=== PATIENT | male | born 1955 | race Caucasian/White ===

== ENCOUNTER 2020-10-13 11:14 | Inpatient (IN) ==
[2020-10-13] MEDS ORDERED: ACETAMINOPHEN 500 MG TAB ONE (12:00)
[2020-10-13 12:45] LABS: Appearance Urine Clear (Clear); Bacteria Urine Automated Negative (Negative); Bilirubin Urine Negative (Negative); Blood Urine Negative (Negative); Color Urine Yellow; Glucose Urine UA Negative (Negative); Ketones Urine Negative (Negative); Leukocyte Esterase Urine Trace (Negative); Nitrite Urine Negative (Negative); Protein Urine Trace (Negative); RBC Urine Automated 0-4 /hpf (0-4); Specific Gravity Urine 1.023 (1.000-1.030); Urobilinogen Urine Negative (Negative)
[2020-10-13] MEDS ORDERED: SODIUM CHLORIDE 0.9% 1000ML 1,000 ML IV STA (12:56)
[2020-10-13] MEDS ORDERED: ACETAMINOPHEN 1,000 MG/100 ML VIAL IV STA (12:56)
[2020-10-13] MEDS ORDERED: CEFEPIME 2,000 MG/20 ML VIAL IV STA (12:58)
[2020-10-13] MEDS ORDERED: SODIUM CHLORIDE 0.9% 1000ML 2,000 ML IV ONE (13:00)
[2020-10-13 13:16] LABS: Basophils # (auto) 0.01 K/uL (0-0.2); Basophils % (auto) 0.1 %; Hematocrit (blood only) 42.6 % (42-52); Immature Granulocytes # (auto) 0.01 K/uL (0.00-0.02); Immature Granulocytes % (auto) 0.1 %; Lymphocytes # (auto) 0.94 K/uL (1.2-3.4); Lymphocytes % (auto) 9.3 %; Mean Corpuscular Hemoglobin 29.9 pg (25-34); Mean Corpuscular Hgb Conc 32.9 g/dL (32-36); Mean Corpuscular Volume 90.8 fL (80-100); Mean Platelet Volume 11.2 fL (7.4-10.4); Monocytes # (auto) 0.58 K/uL (0.11-0.59); Monocytes % (auto) 5.8 %; Neutrophils # (auto) 8.53 K/uL (1.4-6.5); Neutrophils % (auto) 84.7 %; Platelet Count 185 K/uL (130-400); RDW Coefficient of Variation 12.8 % (11.5-14.5); Red Blood Count 4.69 M/uL (4.7-6.1); White Blood Count 10.07 K/uL (4.8-10.8)
[2020-10-13 13:34] LABS: Albumin Level 3.6 gm/dl (3.4-5.0); BUN Creatinine Ratio 10.9 (10-20); Creatinine Clr Calc Pharmacy 47.2 ml/min; Est GFR (African American) 53.2 ml/min; Est GFR (Non-African American) 45.9 ml/min; Potassium 3.7 mmol/L (3.5-5.1)
[2020-10-13 13:37] LABS: Albumin Globulin Ratio 1.1 (0.9-2); Bilirubin,Total 0.9 mg/dl (0.2-1); Globulin 3.4 gm/dl (2.5-4.0)
[2020-10-13] MEDS ORDERED: OPTIRAY 320 100ml IV ONE (14:19)
--- NOTE | 2020-10-13 14:29 | XRay Report ---
SINGLE VIEW CHEST CLINICAL HISTORY: Fever. FINDINGS: 2 AP, portable, upright chest radiographs are obtained. No prior studies are available for comparison at the time of dictation. Heart is top normal for projection. The mediastinal contour is w ithin normal limits. Atelectasis is noted at the lung bases. The lungs and pleural spaces are otherwi se clear. No pneumothorax is seen. The bony thorax is grossly intact. IMPRESSION: No acute cardiopulmonary abnormality. ACT 112: Negative or not required by law. Electronically signed by: Hector Crowe M.D. 10/13/2020 2:28 PM
--- NOTE | 2020-10-13 14:55 | CT Scan Report ---
CT SCAN OF THE ABDOMEN AND PELVIS WITH IV CONTRAST CLINICAL HISTORY: Bladder stone. Recent cystoscopy. Fever. COMPARISON STUDY: Renal ultrasound dated 02/12/2014. TECHNIQUE: Following the IV administration of 94 cc of Optiray 320, CT scan of the abdomen and pelvi s is performed from the lung bases to the proximal femora. Images are reviewed in the axial, sagittal , and coronal planes. IV contrast was administered without complication. A dose lowering technique wa s utilized adhering to the principles of ALARA. CT DOSE: 292.72 mGy.cm FINDINGS: Lung bases: The heart is normal in size and without pericardial effusion. The lung bases are clear no ting bibasilar scarring/atelectasis. Liver: The contrast-enhanced liver is normal in size, contour, and attenuation. There is no intrahepa tic biliary ductal dilatation. The hepatic veins and portal veins are patent. Gallbladder: Unremarkable. Spleen: Normal in size and attenuation. Pancreas: Unremarkable. Adrenal glands: Unremarkable. Kidneys: The contrast enhanced kidneys are normal in size and without hydronephrosis. 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 There is mild fullness of the left ureter and renal collec ting system with urothelial thickening of the left ureter. There is heterogeneously/striated enhancem ent in the upper pole of the left kidney with mild left-sided perinephric stranding. The right kidney enhances homogeneously. Abdominal vasculature: The abdominal aorta is normal in course and caliber noting scattered foci of a therosclerotic calcification. Bowel: There is moderate constipation. No bowel obstruction is identified. The appendix is well-visu alized and normal. Peritoneum: There is no intraperitoneal free air or abdominal ascites. There is a small fat-containin g umbilical hernia. Lymphadenopathy: None. Pelvic viscera: The prostate gland is enlarged and heterogeneous measuring 5.8 cm in transverse outer . There is median lobe hypertrophy. The bladder wall appears mildly thickened and trabeculated sugges ting chronic outlet obstruction. A 1.9 cm bladder calculus is noted. Skeletal structures: No lytic or blastic lesions are seen. IMPRESSION: 1. There is heterogeneous/striated enhancement in the upper pole of the left kidney with mild left-si ded perinephric stranding. Given the history of recent cystoscopy and fever this likely represents as cending urinary tract infection/pyelonephritis. Correlate with clinical findings and urinalysis. 2. The right kidney enhances homogeneously. 3. The prostate gland is significantly enlarged and heterogeneous and there is evidence of chronic bl adder outlet obstruction. Superimposed prostatitis would be impossible to exclude. Correlate clinical ly. 4. There is a large bladder calculus. 5. Additional findings as above. ACT 112: Negative or not required by law. Electronically signed by: Hector Crowe M.D. 10/13/2020 2:54 PM
[2020-10-13] MEDS ORDERED: LIDOCAINE 2% JELLY 5 ML TUBE EXT ONE (15:35)
--- NOTE | 2020-10-13 17:14 | History & Physical Report ---
Date of Service October 13, 2020 Assessment & Plan (1) Acute urinary retention: Plan: Patient is being admitted for above problem. Leroy is placed. Will likely need TURP. will consult urology. will be NPO after midnight. continue to tamsulosin. (2) Benign localized prostatic hyperplasia with lower urinary tract symptoms (LUTS): Plan: as above. not respondning to tamsulosin. (3) Recurrent genital herpes simplex: Plan: CONTINUE ACYCLOVIR. No breakout for years. (4) Chronic kidney disease, stage 3: Plan: Creatinine is elevated at 1.45 unsure of baseline. will monitor. History of Present Illness Chief Complaint: urinary retention Primary Care Provider: Nitesh Munoz 65 yo male who history of BPH, comes into the hospital with a 3 day history of urinary retention. Patient reports over course of Tuesday into Tuesday, patient has been having severe difficulty urinating. He reports he would need to try for about 30 minutes just to get a short stream and sometimes even an unsteady (trickle) stream. He tried to hold off from going to the hospital. But he felt uncomfortable and had a dull pain in his lower abdomen. Once he came to the ER, a leroy catheter was placed and over 1.5 liters of urine was removed. Patient reports feeling significantly better after this procedure. Earlier in the week, patient was seen by Urology and had an in office cystoscopy. It was deemed patient will require a TURP and this was planned for the future. Allergies Allergy/AdvReac Type Severity Reaction Status Date / Time seasonal Allergy Unknown Uncoded 10/06/20 14:56 quillian Allergy Uncoded 10/06/20 14:56 Home Medications Medication Instructions Recorded Confirmed Type acyclovir 400 mg tablet 400 mg PO BID 09/17/20 10/13/20 History tamsulosin 0.4 mg capsule 0.8 mg PO DAILY 09/17/20 10/13/20 History diazepam 5 mg tablet (Valium) 5 mg PO ONCE PRN #1 tab 09/24/20 10/13/20 Rx Past Med/Surg History Medical History H/O poliomyelitis Hx of cataract Surgical History Hx of tonsillectomy Family History Grandfather (Maternal) Prostate cancer Father Prostate cancer Social History Smoking Status: Never smoker Second Hand Exposure: No; Do You Dip or Chew Tobacco: No; Hx Alcohol Use: Yes Alcohol type: beer Hx Substance Use: No Preferred Language: Beninese Communication Ability: Effective Beliefs That Will Affect Care: None marital status: Current Living Situation: Spouse current occupational status: employed 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 Other Information That Helps Us Care for You: No Feels Safe at Home: Yes Assistive Devices: None Review of Systems Constitutional: no fever, no sweats and no body aches Eyes: no blind spots, no diplopia and no discharge Ear, Nose, Mouth, Throat: no ear pain, no ear trauma and no tinnitus Respiratory: no cough and no change in sputum Cardiovascular: no chest pain and no chest pain with activity Gastrointestinal: no abdominal pain and no bloating Genitourinary: no dysuria, no urinary frequency or no urinary hesitancy Musculoskeletal: no back pain Integumentary: no acne Neurologic: no gait abnormality and no falls Psychiatric: no behavioral changes and no hopelessness Endocrine: no fatigue and no polydipsia Hematologic / Lymphatic: no easy bleeding and no coagulopathy Physical Exam Constitutional: WD/WN, vitals as above Eyes: PERRL, conjunctivae normal, anicteric sclerae ENMT: external ear and nose normal, oropharynx normal Neck: trachea midline, no thyromegaly Cardiovascular: RRR, no murmur, no edema Gastrointestinal (Abdomen): normal bowel sounds, soft, nontender, no hepatosplenomegaly Musculoskeletal: no cyanosis or clubbing, extremities motor strength 5/5 Skin: no rashes, warm and dry Neurologic: PERRL, EOMI, accommodation nl, no face palsy, no dysarthria Psychiatric: A+Ox3, euthymic affect Lymphatic: no cervical or axillary lymphadenopathy Results & Data Results & Data ([facility]) Vital Signs (Past 12 Hours) Vital Signs Temp Pulse Pulse Resp BP BP Pulse Ox 10/13/20 16:05 37.2 C 66 18 155/66 H 98 10/13/20 16:04 37.2 C 10/13/20 14:33 64 18 120/62 96 10/13/20 12:56 77 18 143/76 H 97 10/13/20 11:54 39.1 C H 94 H 18 115/74 96 PG Care Time/CCT Total # of Minutes Spent Total Time Spent with Patient: Total time spent is greater than 50% in coordination of care (as documented) at patient's floor/unit and/or counseling patient: Coding Level of Care Code 01602 Initial Inpt Care Lvl 3 Diagnoses Benign localized prostatic hyperplasia with lower urinary tract symptoms (LUTS) N40.1 Recurrent genital herpes simplex A60.00 Chronic kidney disease, stage 3 N18.30 Acute urinary retention R33.8 Time Spent (min) 55
--- NOTE | 2020-10-13 17:40 | Emergency Department Note ---
History of Present Illness General Chief complaint: Referred by Doctor Stated complaint: REFERRD BY DOCTOR Source: patient, RN notes reviewed and old records reviewed Mode of arrival: ambulatory Limitations: no limitations History of Present Illness Provider complaint: Difficulty urinating This patient is a 65-year-old male who presents to the emergency department with complaints of difficulty urinating. Patient states he had a cystoscopy performed 1 week ago. He initially had no difficulty urinating several days later developed a week and a forced stream. Tonight he complains of discomfort and feels the urge to urinate. He states he has a known bladder stone and a large prostate. Patient denies any fevers, blood in the urine, back pain or vomiting. Home Medications Medication Instructions Recorded Confirmed Type acyclovir 400 mg tablet 400 mg PO BID 09/17/20 10/14/20 History tamsulosin 0.4 mg capsule 0.8 mg PO QAM 09/17/20 10/14/20 History diazepam 5 mg tablet (Valium) 5 mg PO ONCE PRN #1 tab 09/24/20 10/14/20 Rx acetaminophen 325 mg tablet 650 mg PO Q4H PRN #20 tab 10/18/20 Rx amoxicillin 875 mg-potassium 1 tab PO BID #10 tab 10/18/20 Rx clavulanate 125 mg tablet (Augmentin) Allergies Allergy/AdvReac Type Severity Reaction Status Date / Time quillian Allergy Mild was told Uncoded 10/14/20 15:49 family history, and not to receive it seasonal Allergy Unknown Uncoded 10/14/20 15:49 Past Med/Surg History Medical History Benign localized prostatic hyperplasia with lower urinary tract symptoms (LUTS) leroy cath in place and in hospital 10/14/2020 Chronic kidney disease, stage 3 GERD with esophagitis diet controlled H/O poliomyelitis Recurrent genital herpes simplex Surgical History Hx of cataract surgery right and left Hx of tonsillectomy Family History Grandfather (Maternal) Prostate cancer Father Prostate cancer Social History Smoking Status: Never smoker Second Hand Exposure: No; Hx Alcohol Use: Yes Alcohol type: beer Hx Substance Use: No Preferred Language: Yakut Communication Ability: Effective Visual Impairment: No Limitations Functional Analyst Required: No Beliefs That Will Affect Care: None marital status: Current Living Situation: Spouse current occupational status: employed 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 and A total of 10 systems reviewed and were otherwise negative Physical Exam Vital Signs Vital Signs - 24 hr 10/13/20 11:54 10/13/20 12:56 10/13/20 14:33 Temperature 39.1 C H Temperature Source Oral Pulse Rate 94 H Pulse Rate [Left Apical] 77 64 Pulse Rhythm Regular Pulse Rhythm [Left Apical] Regular Pulse Strength Normal Respiratory Rate 18 18 18 Respiratory Effort / Characteristics Non-Labored Spontaneous Non-Labored Non-Labored Respiratory Depth Normal Normal Normal Respiratory Pattern Regular Blood Pressure 115/74 Blood Pressure [Left Arm] 143/76 H 120/62 Blood Pressure Mean 87 Blood Pressure Mean [Left Arm] 98 81 Blood Pressure Position Sitting Pulse Oximetry 96 97 96 Oxygen Delivery Method Room Air Room Air Room Air Sepsis Recent Fever Within 48 Hours Yes Sepsis New/Unexplained Change in Mental Status No Sepsis Action Taken by Nursing No Action Required 10/13/20 16:04 10/13/20 16:05 10/13/20 17:27 Temperature 37.2 C 37.2 C Temperature Source Oral Oral Pulse Rate Pulse Rate [Left Apical] 66 68 Pulse Rhythm Pulse Rhythm [Left Apical] Regular Pulse Strength Respiratory Rate 18 19 Respiratory Effort / Characteristics Respiratory Depth Normal Respiratory Pattern Blood Pressure Blood Pressure [Left Arm] 155/66 H Blood Pressure Mean Blood Pressure Mean [Left Arm] 95 Blood Pressure Position Pulse Oximetry 98 98 Oxygen Delivery Method Room Air Room Air Sepsis Recent Fever Within 48 Hours Sepsis New/Unexplained Change in Mental Status Sepsis Action Taken by Nursing Vital signs reviewed. General: Well-appearing 65-year-old male, in no significant distress. HEENT: No scleral icterus, PERRLA, neck supple. Atraumatic. Cardiovascular: Regular rate and rhythm, no extra sounds. Pulmonary: Clear to auscultation bilaterally, normal work of breathing. Abdomen: Soft, mild pubic discomfort to palpation, nondistended, positive bowel sounds. Musculoskeletal: Atraumatic, no peripheral edema. No CVA tenderness Neurologic: Patient awake alert and oriented x 3 Skin: Warm, dry, no rash Course Administered Medications Discontinued Medications Acetaminophen (Acetaminophen 500 Mg Tab) Confirm Administered Dose 1,000 mg .ROUTE .STK-MED ONE Stop: 10/13/20 12:01 Last Admin: 10/13/20 12:03 Dose: 1,000 mg Documented by: [id number] Acetaminophen (Acetaminophen 325 Mg Tab) 650 mg PO Q4H PRN PRN Reason: pain/fever Stop: 11/12/20 17:07 Last Admin: 10/14/20 22:48 Dose: 650 mg Documented by: [id number] Admin: 10/14/20 08:25 Dose: 650 mg Documented by: [id number] Acyclovir (Acyclovir 400 Mg Tab) 400 mg PO BID [facility] Stop: 10/23/20 20:59 Last Admin: 10/18/20 08:53 Dose: 400 mg Documented by: [id number] Admin: 10/17/20 21:09 Dose: 400 mg Documented by: [id number] Admin: 10/17/20 09:55 Dose: 400 mg Documented by: [id number] Admin: 10/16/20 21:07 Dose: 400 mg Documented by: [id number] Admin: 10/16/20 09:39 Dose: 400 mg Documented by: [id number] Admin: 10/15/20 20:56 Dose: 400 mg Documented by: [id number] Admin: 10/15/20 08:21 Dose: 400 mg Documented by: [id number] Admin: 10/14/20 20:14 Dose: 400 mg Documented by: [id number] Admin: 10/14/20 08:24 Dose: 400 mg Documented by: [id number] Admin: 10/13/20 21:00 Dose: 400 mg Documented by: [id number] Calcium Carbonate (Calcium Carbonate 500 Mg Chewable Tab) 1,500 mg PO DAILY PRN PRN Reason: Indigestion Stop: 11/16/20 16:01 Last Admin: 10/17/20 16:25 Dose: 1,500 mg Documented by: [id number] Docusate Sodium (Docusate Sodium 100 Mg Cap) 100 mg PO BID [facility] Stop: 11/14/20 12:44 Last Admin: 10/18/20 08:53 Dose: 100 mg Documented by: [id number] Admin: 10/17/20 21:08 Dose: 100 mg Documented by: [id number] Admin: 10/17/20 09:55 Dose: 100 mg Documented by: [id number] Admin: 10/16/20 21:08 Dose: 100 mg Documented by: [id number] Admin: 10/16/20 09:40 Dose: Not Given Documented by: [id number] Admin: 10/15/20 20:56 Dose: 100 mg Documented by: [id number] Admin: 10/15/20 17:10 Dose: 100 mg Documented by: [id number] Enoxaparin Sodium (Enoxaparin Inj 40 Mg/0.4 Ml Syr) 40 mg SQ Q24H ISACC Stop: 11/12/20 20:59 Last Admin: 10/17/20 21:08 Dose: 40 mg Documented by: [id number] Admin: 10/16/20 21:09 Dose: 40 mg Documented by: [id number] Admin: 10/15/20 20:57 Dose: 40 mg Documented by: [id number] Admin: 10/14/20 20:14 Dose: 40 mg Documented by: [id number] Admin: 10/13/20 20:59 Dose: 40 mg Documented by: [id number] Sodium Chloride (Nss 1000ml) 1,000 mls @ 999 mls/hr IV .Q1H1M STA Stop: 10/13/20 13:56 Last Infusion: 10/13/20 16:00 Dose: 0 mls/hr Documented by: [id number] Infusion: 10/13/20 13:39 Dose: 0 mls/hr Documented by: [id number] Admin: 10/13/20 13:38 Dose: 999 mls/hr Documented by: [id number] Acetaminophen (Ofirmev) 1,000 mg in 100 mls @ 400 mls/hr IV NOW STA Stop: 10/13/20 13:10 Last Infusion: 10/13/20 13:39 Dose: 0 mls/hr Documented by: [id number] Admin: 10/13/20 13:38 Dose: 400 mls/hr Documented by: [id number] Cefepime HCl (Maxipime) 2,000 mg in 20 mls @ 5 mls/min IV NOW STA; Protocol Stop: 10/13/20 13:01 Last Admin: 10/13/20 13:38 Dose: 5 mls/min Documented by: [id number] Sodium Chloride (Nss 1000ml) 2,000 mls @ 999 mls/hr IV .Q2H1M ONE Stop: 10/13/20 15:00 Last Infusion: 10/13/20 16:00 Dose: 0 mls/hr Documented by: [id number] Admin: 10/13/20 13:39 Dose: 999 mls/hr Documented by: [id number] Ciprofloxacin (Cipro / D5w) 400 mg in 200 mls @ 100 mls/hr IV Q12H ISACC; Protocol Stop: 10/24/20 09:59 Last Infusion: 10/15/20 00:37 Dose: 0 mls/hr Documented by: [id number] Admin: 10/14/20 22:29 Dose: 100 mls/hr Documented by: [id number] Infusion: 10/14/20 12:39 Dose: 0 mls/hr Documented by: [id number] Admin: 10/14/20 10:39 Dose: 100 mls/hr Documented by: [id number] Sodium Chloride (Nss 1000ml) 1,000 mls @ 125 mls/hr IV .Q8H ISACC Stop: 10/14/20 17:59 Last Infusion: 10/14/20 18:39 Dose: 0 mls/hr Documented by: [id number] Admin: 10/14/20 10:39 Dose: 125 mls/hr Documented by: [id number] Ampicillin Sodium 500 mg/ (Sodium Chloride) 52 mls @ 100 mls/hr IV Q6H ISACC; Protocol Stop: 10/25/20 09:59 Last Infusion: 10/18/20 11:10 Dose: 0 mls/hr Documented by: [id number] Admin: 10/18/20 10:37 Dose: 100 mls/hr Documented by: [id number] Infusion: 10/18/20 04:54 Dose: 0 mls/hr Documented by: [id number] Admin: 10/18/20 04:32 Dose: 100 mls/hr Documented by: [id number] Infusion: 10/17/20 21:38 Dose: 0 mls/hr Documented by: [id number] Admin: 10/17/20 21:08 Dose: 100 mls/hr Documented by: [id number] Infusion: 10/17/20 16:51 Dose: 0 mls/hr Documented by: [id number] Admin: 10/17/20 16:06 Dose: 100 mls/hr Documented by: [id number] Infusion: 10/17/20 10:38 Dose: 0 mls/hr Documented by: [id number] Admin: 10/17/20 10:06 Dose: 100 mls/hr Documented by: [id number] Infusion: 10/17/20 05:14 Dose: 0 mls/hr Documented by: [id number] Admin: 10/17/20 04:35 Dose: 100 mls/hr Documented by: [id number] Infusion: 10/16/20 22:07 Dose: 0 mls/hr Documented by: [id number] Admin: 10/16/20 21:08 Dose: 100 mls/hr Documented by: [id number] Infusion: 10/16/20 18:35 Dose: 0 mls/hr Documented by: [id number] Admin: 10/16/20 17:50 Dose: 100 mls/hr Documented by: [id number] Infusion: 10/16/20 10:35 Dose: 0 mls/hr Documented by: [id number] Admin: 10/16/20 09:40 Dose: 100 mls/hr Documented by: [id number] Infusion: 10/16/20 04:19 Dose: 0 mls/hr Documented by: [id number] Admin: 10/16/20 03:55 Dose: 100 mls/hr Documented by: [id number] Infusion: 10/15/20 21:36 Dose: 0 mls/hr Documented by: [id number] Admin: 10/15/20 20:57 Dose: 100 mls/hr Documented by: [id number] Infusion: 10/15/20 18:24 Dose: 0 mls/hr Documented by: [id number] Admin: 10/15/20 17:11 Dose: 100 mls/hr Documented by: [id number] Infusion: 10/15/20 12:35 Dose: 0 mls/hr Documented by: [id number] Admin: 10/15/20 11:33 Dose: 100 mls/hr Documented by: [id number] Ioversol (Optiray 320 100ml) 94 ml IV ONCE ONE Stop: 10/13/20 14:20 Last Admin: 10/13/20 14:21 Dose: 94 ml Documented by: [id number] Lidocaine HCl (Lidocaine 2% Jelly 5 Ml Tube) 10 ml EXT NOW ONE Stop: 10/13/20 15:36 Last Admin: 10/13/20 17:07 Dose: Not Given Documented by: [id number] Polyethylene Glycol (Polyethylene (Miralax) 17 Gm Pack) 17 gm PO DAILY PRN PRN Reason: Constipation Stop: 11/14/20 12:40 Last Admin: 10/16/20 09:41 Dose: 17 gm Documented by: [id number] Admin: 10/16/20 09:40 Dose: 17 gm Documented by: [id number] Tamsulosin HCl (Tamsulosin Hcl 0.4 Mg Cap) 0.8 mg PO DAILY ISACC Stop: 11/13/20 08:59 Last Admin: 10/18/20 08:53 Dose: 0.8 mg Documented by: [id number] Admin: 10/17/20 09:56 Dose: 0.8 mg Documented by: [id number] Admin: 10/16/20 09:40 Dose: 0.8 mg Documented by: [id number] Admin: 10/15/20 08:21 Dose: 0.8 mg Documented by: [id number] Admin: 10/14/20 08:24 Dose: 0.8 mg Documented by: [id number] Zolpidem Tartrate (Zolpidem Tartrate 5 Mg Tab) 5 mg PO HS PRN PRN Reason: Sleep Stop: 11/15/20 20:59 Last Admin: 10/17/20 21:08 Dose: 5 mg Documented by: [id number] Admin: 10/16/20 21:08 Dose: 5 mg Documented by: [id number] Medical Decision Making Differential Diagnosis Urinary retention, UTI, prostatitis, appendicitis, diverticulitis, bowel obstruction, mesenteric ischemia, aortic pathology, inflammatory bowel disease, renal colic, PUD, pancreatitis, biliary pathology, hernia, volvulus, co nstipation, as well as other pathologies. Medical Records Attestation: I reviewed the patient's medical records. Home Medications Current Medication List: was personally reviewed by me Laboratory Data Attestation: I reviewed the patient's lab results. Result diagrams: 10/18/20 09:43 10/18/20 09:43 Lab Results 10/13/20 10/13/20 10/13/20 Range/Units 12:04 12:58 12:58 WBC 10.07 (4.8-10.8) K/uL RBC 4.69 L (4.7-6.1) M/uL Hgb 14.0 (14.0-18.0) g/dL Hct 42.6 (42-52) % MCV 90.8 (80-100) fL MCH 29.9 (25-34) pg MCHC 32.9 (32-36) g/dL RDW Std Deviation 43.0 (36.4-46.3) fL RDW Coeff of Denisse 12.8 (11.5-14.5) % Plt Count 185 (130-400) K/uL MPV 11.2 H (7.4-10.4) fL Immature Gran % (Auto) 0.1 % Neut % (Auto) 84.7 % Lymph % (Auto) 9.3 % [place] % (Auto) 5.8 % Eos % (Auto) 0.0 % Baso % (Auto) 0.1 % Neut # (Auto) 8.53 H (1.4-6.5) K/uL Lymph # (Auto) 0.94 L (1.2-3.4) K/uL [place] # (Auto) 0.58 (0.11-0.59) K/uL Eos # (Auto) 0.00 (0-0.5) K/uL Baso # (Auto) 0.01 (0-0.2) K/uL Immature Gran # (Auto) 0.01 (0.00-0.02) K/uL Sodium 136 (136-145) mmol/L Potassium 3.7 (3.5-5.1) mmol/L Chloride 103 (98-107) mmol/L Carbon Dioxide 26 (21-32) mmol/L Anion Gap 7.0 (3-11) BUN 17 (7-18) mg/dl Creatinine 1.56 H (0.6-1.4) mg/dl Est Cr Clr Drug Dosing 47.2 ml/min Est GFR ( Amer) 53.2 ml/min Est GFR (Non-Af Amer) 45.9 ml/min BUN/Creatinine Ratio 10.9 (10-20) Glucose 115 H (70-99) mg/dl Lactate (0.4-2.0) mmol/L Calcium 9.0 (8.5-10.1) mg/dl Total Bilirubin 0.9 (0.2-1) mg/dl AST 17 (15-37) U/L ALT 23 (12-78) U/L Alkaline Phosphatase 58 (45-117) U/L Total Protein 7.0 (6.4-8.2) gm/dl Albumin 3.6 (3.4-5.0) gm/dl Globulin 3.4 (2.5-4.0) gm/dl Albumin/Globulin Ratio 1.1 (0.9-2) Urine Color Yellow Urine Appearance Clear (Clear) Urine pH 5.0 (4.5-7.5) Ur Specific [place] 1.023 (1.000-1.030) Urine Protein Trace H (Negative) Urine Glucose (UA) Negative (Negative) Urine Ketones Negative (Negative) Urine Blood Negative (Negative) Urine Nitrite Negative (Negative) Urine Bilirubin Negative (Negative) Urine Urobilinogen Negative (Negative) Ur Leukocyte Esterase Trace H (Negative) Urine WBC (Auto) 1-5 (0-5) /hpf Urine RBC (Auto) 0-4 (0-4) /hpf U Hyaline Cast (Auto) 1-5 (0-5) /lpf U Epithel Cells (Auto) 10-20 H (0-5) /lpf Urine Bacteria (Auto) Negative (Negative) COVID-19 Eval Order SARS-CoV-2 (PCR) (Negative) 10/13/20 10/13/20 10/13/20 Range/Units 13:00 13:00 13:22 WBC (4.8-10.8) K/uL RBC (4.7-6.1) M/uL Hgb (14.0-18.0) g/dL Hct (42-52) % MCV (80-100) fL MCH (25-34) pg MCHC (32-36) g/dL RDW Std Deviation (36.4-46.3) fL RDW Coeff of Denisse (11.5-14.5) % Plt Count (130-400) K/uL MPV (7.4-10.4) fL Immature Gran % (Auto) % Neut % (Auto) % Lymph % (Auto) % [place] % (Auto) % Eos % (Auto) % Baso % (Auto) % Neut # (Auto) (1.4-6.5) K/uL Lymph # (Auto) (1.2-3.4) K/uL [place] # (Auto) (0.11-0.59) K/uL Eos # (Auto) (0-0.5) K/uL Baso # (Auto) (0-0.2) K/uL Immature Gran # (Auto) (0.00-0.02) K/uL Sodium (136-145) mmol/L Potassium (3.5-5.1) mmol/L Chloride (98-107) mmol/L Carbon Dioxide (21-32) mmol/L Anion Gap (3-11) BUN (7-18) mg/dl Creatinine (0.6-1.4) mg/dl Est Cr Clr Drug Dosing ml/min Est GFR ( Amer) ml/min Est GFR (Non-Af Amer) ml/min BUN/Creatinine Ratio (10-20) Glucose (70-99) mg/dl Lactate 0.9 (0.4-2.0) mmol/L Calcium (8.5-10.1) mg/dl Total Bilirubin (0.2-1) mg/dl AST (15-37) U/L ALT (12-78) U/L Alkaline Phosphatase (45-117) U/L Total Protein (6.4-8.2) gm/dl Albumin (3.4-5.0) gm/dl Globulin (2.5-4.0) gm/dl Albumin/Globulin Ratio (0.9-2) Urine Color Urine Appearance (Clear) Urine pH (4.5-7.5) Ur Specific [place] (1.000-1.030) Urine Protein (Negative) Urine Glucose (UA) (Negative) Urine Ketones (Negative) Urine Blood (Negative) Urine Nitrite (Negative) Urine Bilirubin (Negative) Urine Urobilinogen (Negative) Ur Leukocyte Esterase (Negative) Urine WBC (Auto) (0-5) /hpf Urine RBC (Auto) (0-4) /hpf U Hyaline Cast (Auto) (0-5) /lpf U Epithel Cells (Auto) (0-5) /lpf Urine Bacteria (Auto) (Negative) COVID-19 Eval Order Covid19 at [facility] SARS-CoV-2 (PCR) NEGATIVE (Negative) Imaging Data Radiologist's Impression: Chest X-Ray 10/13/20 12:56 SINGLE VIEW CHEST CLINICAL HISTORY: Fever. FINDINGS: 2 AP, portable, upright chest radiographs are obtained. No prior studies are available for comparison at the time of dictation. Heart is top normal for projection. The mediastinal contour is within normal limits. Atelectasis is noted at the lung bases. The lungs and pleural spaces are otherwise clear. No pneumothorax is seen. The bony thorax is grossly intact. IMPRESSION: No acute cardiopulmonary abnormality. ACT 112: Negative or not required by law. Electronically signed by: Hector Crowe M.D. 10/13/2020 2:28 PM Abdomen/Pelvis CT 10/13/20 12:58 CT SCAN OF THE ABDOMEN AND PELVIS WITH IV CONTRAST CLINICAL HISTORY: Bladder stone. Recent cystoscopy. Fever. COMPARISON STUDY: Renal ultrasound dated 02/12/2014. TECHNIQUE: Following the IV administration of 94 cc of Optiray 320, CT scan of the abdomen and pelvis is performed from the lung bases to the proximal femora. Images are reviewed in the axial, sagittal, and coronal planes. IV contrast was administered without complication. A dose lowering technique was utilized adhering to the principles of ALARA. CT DOSE: 292.72 mGy.cm FINDINGS: Lung bases: The heart is normal in size and without pericardial effusion. The lung bases are clear noting bibasilar scarring/atelectasis. Liver: The contrast-enhanced liver is normal in size, contour, and attenuation. There is no intrahepatic biliary ductal dilatation. The hepatic veins and portal veins are patent. Gallbladder: Unremarkable. Spleen: Normal in size and attenuation. Pancreas: Unremarkable. Adrenal glands: Unremarkable. Kidneys: The contrast enhanced kidneys are normal in size and without hydronephrosis. 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 There is mild fullness of the left ureter and renal collecting system with urothelial thickening of the left ureter. There is heterogeneously/striated enhancement in the upper pole of the left kidney with mild left-sided perinephric stranding. The right kidney enhances homogeneously. Abdominal vasculature: The abdominal aorta is normal in course and caliber noting scattered foci of atherosclerotic calcification. Bowel: There is moderate constipation. No bowel obstruction is identified. The appendix is well-visualized and normal. Peritoneum: There is no intraperitoneal free air or abdominal ascites. There is a small fat-containing umbilical hernia. Lymphadenopathy: None. Pelvic viscera: The prostate gland is enlarged and heterogeneous measuring 5.8 cm in transverse outer. There is median lobe hypertrophy. The bladder wall a ppears mildly thickened and trabeculated suggesting chronic outlet obstruction. A 1.9 cm bladder calculus is noted. Skeletal structures: No lytic or blastic lesions are seen. IMPRESSION: 1. There is heterogeneous/striated enhancement in the upper pole of the left kidney with mild left-sided perinephric stranding. Given the history of recent cystoscopy and fever this likely represents ascending urinary tract infection/pyelonephritis. Correlate with clinical findings and urinalysis. 2. The right kidney enhances homogeneously. 3. The prostate gland is significantly enlarged and heterogeneous and there is evidence of chronic bladder outlet obstruction. Superimposed prostatitis would be impossible to exclude. Correlate clinically. 4. There is a large bladder calculus. 5. Additional findings as above. ACT 112: Negative or not required by law. Electronically signed by: Hector Crowe M.D. 10/13/2020 2:54 PM Blood Pressure Blood Pressure Findings: Elevated blood pressure Blood Pressure Disposition: elevated BP felt to be situational MDM Narrative This patient was evaluated and appeared to be in no significant distress. IV ac cess was obtained and laboratory work was drawn. An order for cardiac monitoring was placed and the patient is noted to be in a normal sinus rhythm at 77 bpm. The patient is noted to be febrile at 39.1 degrees in triage. Blood cultures are pending. Lactate is noted to be 0.9 with a normal WBC. Patient was medicated with 2 g of IV cefepime. Patient was hydrated with normal saline solution. Patient was initially able to pass urine but after CT imaging was performed, the patient was reevaluated and was sitting up in significant discomfort. He stated he could not empty his bladder. A Leroy catheter was placed for a large amount of urine, 1.5 L. The patient had significant relief. Dr. Smith of urology was made aware of the patient's presentation. The hospitalist service has been consulted for admission and further management. Patient and were made aware of plan and agreed. Impression & Plan Acute urinary retention, Fever, Prostatic hypertrophy Discharge Plan Visit Data Chief Complaint: Referred by Doctor Stated Complaint: REFERRD BY DOCTOR ED Provider: Debbi Eagle Discharge Problem: Acute urinary retention, Fever, Prostatic hypertrophy Patient Disposition: Admitted As Inpatient Condition: Good Discharge Instructions Interventions: ED Discharge Assessment Last Done: 10/13/20 18:05
[2020-10-13 18:32] LABS: BUN Creatinine Ratio 10.8 (10-20); Creatinine Clr Calc Pharmacy 50.8 ml/min; Est GFR (African American) 58.2 ml/min; Est GFR (Non-African American) 50.2 ml/min; Potassium 3.7 mmol/L (3.5-5.1)
[2020-10-13] MEDS: ENOXAPARIN INJ 40 MG/0.4 ML SYR SQ SCH (20:59)
[2020-10-13] MEDS: ACYCLOVIR 400 MG TAB PO SCH (21:00)
[2020-10-14 06:52] LABS: Basophils # (auto) 0.02 K/uL (0-0.2); Basophils % (auto) 0.2 %; Hematocrit (blood only) 39.9 % (42-52); Hemoglobin 13.2 g/dL (14.0-18.0); Immature Granulocytes # (auto) 0.01 K/uL (0.00-0.02); Immature Granulocytes % (auto) 0.1 %; Lymphocytes % (auto) 7.3 %; Mean Corpuscular Hgb Conc 33.1 g/dL (32-36); Mean Corpuscular Volume 90.7 fL (80-100); Mean Platelet Volume 10.7 fL (7.4-10.4); Monocytes # (auto) 0.84 K/uL (0.11-0.59); Monocytes % (auto) 7.7 %; Neutrophils # (auto) 9.23 K/uL (1.4-6.5); Neutrophils % (auto) 84.7 %; Platelet Count 142 K/uL (130-400); RDW Coefficient of Variation 13.2 % (11.5-14.5); RDW Standard Deviation 43.7 fL (36.4-46.3)
[2020-10-14 07:27] LABS: BUN Creatinine Ratio 9.4 (10-20); Calcium 8.3 mg/dl (8.5-10.1); Creatinine Clr Calc Pharmacy 42.1 ml/min; Est GFR (African American) 46.3 ml/min; Potassium 3.7 mmol/L (3.5-5.1)
[2020-10-14] MEDS: ACYCLOVIR 400 MG TAB PO SCH ×2 (08:24→20:14)
[2020-10-14] MEDS: TAMSULOSIN HCL 0.4 MG CAP PO SCH (08:24)
[2020-10-14] MEDS: ACETAMINOPHEN 325 MG TAB PO PRN ×2 (08:25→22:48)
--- NOTE | 2020-10-14 09:22 | Urology Consultation ---
Date of Consultation October 14, 2020 Assessment & Plan (1) Acute urinary retention: (2) Benign localized prostatic hyperplasia with lower urinary tract symptoms (LUTS): 65yo M admitted with acute urinary retention and fever - Plan of care reviewed with Dr. Babb - Patient is s/p outpatient cystoscopy on 10/06 - CT imaging reviewed - Mild left-sided perinephric stranding, possibly ascending UTI/Pyelo given recent cystoscopy; Enlarged prostate and bladder outlet obstruction, superimposed prostatitis impossible to exclude - He is feeling well today, no complaints of pain at present. - Fever this AM -- Tmax 39.4 today at 0744 - Labs reviewed, Wbc 10.90 and creatinine up to 1.75 -- Will continue to trend - BCx pending - Urinalysis on arrival not suggestive of infection -- Will check a urine culture - No acute intervention planned for today --Ok to have diet back today from G U perspective - We will plan to proceed with Cystolitholapaxy and TURP procedure this Tuesday ( 10/17/20) with Dr. Babb. - Recommend starting Ciprofloxacin given fever, upcoming procedure, and possible UTI/prostatitis - Can transition to oral Cipro on discharge for a total of 10 days pending final culture results - Maintain leroy catheter and continue on discharge - Continue supportive care, antibiotic therapy, and pain management, follow cultures - Will continue to follow History of Present Illness Reason for Consultation: Urinary retention Attending Physician: Lanny Dominguez MD History of Present Illness 65yo M who reported to the emergency department with reports of urinary retention for 3 days. He reported that over the course of a few days he began having severe difficulty urinating. He reported a weak and unsteady stream and a dull uncomfortable feeling in his lower abdomen. The patient was seen in the urology office [address] Babb and underwent a cystoscopy. It was deemed that the patient would require a TURP and cystolitholapaxy procedure and this was planned for November 25. A Leroy catheter was placed in the ED revealing 1.5 L of urine. On arrival, he was febrile @ 39.1C. WBC 10.07, Hgb 13.2, Cr 1.56. Urinalysis not suggestive of infection. Past medical history includes BPH with LUTS, CKD stage III, GERD, recurrent genital herpes simplex CTAP IMPRESSION: 1. There is heterogeneous/striated enhancement in the upper pole of the left kidney with mild left-sided perinephric stranding. Given the history of recent cystoscopy and fever this likely represents ascending urinary tract infection/pyelonephritis. Correlate with clinical findings and urinalysis. 2. The right kidney enhances homogeneously. 3. The prostate gland is significantly enlarged and heterogeneous and there is evidence of chronic bladder outlet obstruction. Superimposed prostatitis would be impossible to exclude. Correlate clinically. 4. There is a large bladder calculus. Patient examined at bedside this AM. Awake, resting in bed on arrival. He currently denies any pain or discomfort. Has some back stiffness from being in bed. Fever this AM -Tmax 39.4 at 0744. Denies chills. Denies nausea or vomiting. Leroy catheter intact, draining clear yellow urine. He has been NPO. He is tolerating the leroy catheter with minimal bother. He continues on flomax. A urine culture is pending. Offers no additional complaints at this time. Allergies Allergy/AdvReac Type Severity Reaction Status Date / Time quillian Allergy Mild was told Uncoded 10/14/20 15:49 family history, and not to receive it seasonal Allergy Unknown Uncoded 10/14/20 15:49 Home Medications Medication Instructions Recorded Confirmed Type acyclovir 400 mg tablet 400 mg PO BID 09/17/20 10/14/20 History tamsulosin 0.4 mg capsule 0.8 mg PO QAM 09/17/20 10/14/20 History diazepam 5 mg tablet (Valium) 5 mg PO ONCE PRN #1 tab 09/24/20 10/14/20 Rx Patient History Medical History Benign localized prostatic hyperplasia with lower urinary tract symptoms (LUTS) leroy cath in place and in hospital 10/14/2020 Chronic kidney disease, stage 3 GERD with esophagitis diet controlled H/O poliomyelitis Recurrent genital herpes simplex Surgical History Hx of cataract surgery right and left Hx of tonsillectomy Family History Grandfather (Maternal) Prostate cancer Father Prostate cancer Social History Smoking Status: Never smoker Second Hand Exposure: No; Hx Alcohol Use: Yes Alcohol type: beer Hx Substance Use: No Preferred Language: Cymro Communication Ability: Effective 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 Required: No Beliefs That Will Affect Care: None marital status: Current Living Situation: Spouse current occupational status: employed 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 Feels Safe at Home: Yes Assistive Devices: None Review of Systems Review of Systems: All systems reviewed & are unremarkable except as noted in HPI & below Physical Exam Constitutional: well developed and well nourished; no acute distress and not ill appearing Respiratory: normal respiratory effort and able to speak in complete sentences; no labored breathing and no audible wheezes Gastrointestinal (Abdomen): Inspection/Auscultation: abdomen normal to inspection; abdomen not distended Musculoskeletal: Head/Neck/Chest: normocephalic Skin: No visible rashes or lesions to exposed skin areas Neurologic: moves all extremities and awake Psychiatric: Orientation: alert, oriented x 3 and cooperative Genitourinary: Leroy catheter intact, draining clear yellow urine Results & Data ([facility] [place]) Vital Signs (Past 12 Hours) Vital Signs Temp Pulse Resp BP Pulse Ox 10/14/20 09:14 37.6 C H 10/14/20 07:44 39.4 C H 78 16 121/68 95 10/13/20 22:33 37.9 C H 90 20 159/72 H 97 PG Care Time/CCT Total # of Minutes Spent Total Time Spent with Patient: Total time spent is greater than 50% in coordination of care (as documented) at patient's floor/unit and/or counseling patient: Coding Level of Care Code 06786 Inpt Consult Level 3 Diagnoses Acute urinary retention R33.8 Benign localized prostatic hyperplasia with lower urinary tract symptoms (LUTS) N40.1
[2020-10-14] MEDS ORDERED: SODIUM CHLORIDE 0.9% 1000ML 1,000 ML IV SCH (10:00)
[2020-10-14] MEDS: CIPROFLOXACIN / D5W 400 MG/200 ML BAG IV SCH ×2 (10:39→22:29)
--- NOTE | 2020-10-14 14:32 | Hospitalist Progress Note ---
Date of Service October 14, 2020 Assessment & Plan (1) Acute urinary retention: Plan: Presented with worsening feeling of bladder fullness about 4-5 days after undergoing cystoscopy in office with Urology--> found to have retained urine of 1.5L after Reyes placed in ER has known enlarged prostate and plan for TURP this Tuesday with Dr. Babb -Reyes functioning well-to remain in place with fever on arrival and again this AM-teat with abx as below for presumed p rostatitis despite normal UA without infection -continue tamsulosin -appreciate Urology consultation (2) Fever: Plan: with fever on arrival and again this AM received a dose of Cefepime in ER x 1, abx not continued after admission BCxs-NGTD Urine culture collected this AM (after one dose of Cefepime on 10/13)-await results COuld be prostatitis even with normal appearing UA -start Cipro IV and convert to po upon discharge follow Ur cx, BCxs, fever curve if improved and BCxs remain no growth by 48 hours, could dc to home with Reyes in place on po CIpro APAP prn fever (3) Benign localized prostatic hyperplasia with lower urinary tract symptoms (LUTS): Plan: as above. 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.4 Could be due to prerenal from fever and mild dehydration, could also be from post-renal obstruction Reyes now in place give 1L NS today follow BMP in AM -Avoid nephrotoxins -renally dose meds when appropriate (5) Chronic kidney disease, stage 3: Plan: Creatinine is elevated at 1.45 on baseline saw Nephro 10 years ago and was told 24 hour urine studies were normal and 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 Has some back stiffness from being in bed. No chest pains or SOB, no abd pain. Is normally quite active; he walked 4 miles on Tue and 3 miles on Tuesday with his while retaining urine. He reports he saw Nephrology once many years ago for reduced GFR but had a 24 hour urine test and was told by Dr. Green he had nothing to worry about. had a fever again this AM Review of Systems Review of Systems: All systems reviewed & are unremarkable except as noted in HPI & below Physical Exam Constitutional: WD/WN, vitals as above Eyes: + anicteric sclerae ENMT: external ear and nose normal, oropharynx normal Neck: trachea midline, no thyromegaly Respiratory: normal respiratory effort, lungs clear to auscultation Cardiovascular: RRR, no murmur, no edema Chest (Breasts): Chest: normal inspection of chest Gastrointestinal (Abdomen): normal bowel sounds, soft, nontender, no hepatosplenomegaly Musculoskeletal: Extremities: extremities normal to inspection; no cyanosis and no clubbing Skin: no rashes, warm and dry Neurologic: moves all extremities and awake; no focal motor deficits Psychiatric: A+Ox3, euthymic affect Genitourinary: Reyes in place draining clear, yellow urine Lymphatic: no lymphedema Results & Data [facility]) Vital Signs (Past 12 Hours) Vital Signs Temp Pulse Resp BP Pulse Ox 10/14/20 09:14 37.6 C H 10/14/20 07:44 39.4 C H 78 16 121/68 95 Laboratory Results 10/14/20 10/14/20 10/13/20 Range/Units 06:40 06:40 18:01 WBC 10.90 H (4.8-10.8) K/uL RBC 4.40 L (4.7-6.1) M/uL Hgb 13.2 L (14.0-18.0) g/dL Hct 39.9 L (42-52) % MCV 90.7 (80-100) fL MCH 30.0 (25-34) pg MCHC 33.1 (32-36) g/dL RDW Std Deviation 43.7 (36.4-46.3) fL RDW Coeff of Denisse 13.2 (11.5-14.5) % Plt Count 142 (130-400) K/uL MPV 10.7 H (7.4-10.4) fL Immature Gran % (Auto) 0.1 % Neut % (Auto) 84.7 % Lymph % (Auto) 7.3 % [place] % (Auto) 7.7 % Eos % (Auto) 0.0 % Baso % (Auto) 0.2 % Neut # (Auto) 9.23 H (1.4-6.5) K/uL Lymph # (Auto) 0.80 L (1.2-3.4) K/uL [place] # (Auto) 0.84 H (0.11-0.59) K/uL Eos # (Auto) 0.00 (0-0.5) K/uL Baso # (Auto) 0.02 (0-0.2) K/uL Immature Gran # (Auto) 0.01 (0.00-0.02) K/uL Sodium 137 137 (136-145) mmol/L Potassium 3.7 3.7 (3.5-5.1) mmol/L Chloride 106 108 H (98-107) mmol/L Carbon Dioxide 26 25 (21-32) mmol/L Anion Gap 5.0 4.0 (3-11) BUN 16 16 (7-18) mg/dl Creatinine 1.75 H D 1.45 H (0.6-1.4) mg/dl Est Cr Clr Drug Dosing 42.1 50.8 ml/min Est GFR ( Amer) 46.3 58.2 ml/min Est GFR (Non-Af Amer) 40.0 50.2 ml/min BUN/Creatinine Ratio 9.4 L 10.8 (10-20) Glucose 111 H 129 H (70-99) mg/dl Calcium 8.3 L 8.0 L (8.5-10.1) mg/dl PG Care Time/CCT Total # of Minutes Spent Total Time Spent with Patient: Total time spent is greater than 50% in coordination of care (as documented) at patient's floor/unit and/or counseling patient: Coding Level of Care Code 45485 Subseq Hosp Care Lvl 3 Diagnoses Acute urinary retention R33.8 Benign localized prostatic hyperplasia with lower urinary tract symptoms (LUTS) N40.1 Recurrent genital herpes simplex A60.00 Chronic kidney disease, stage 3 N18.30 Pure hypercholesterolemia E78.00 VALERIA (acute kidney injury) N17.9 Fever R50.9
--- NOTE | 2020-10-14 18:45 | Electrocardiogram Report ---
Test Reason : Blood Pressure : / mmHG Vent. Rate : 083 BPM Atrial Rate : 083 BPM P-R Int : 146 ms QRS Dur : 080 ms QT Int : 338 ms P-R-T Axes : 048 068 005 degrees QTc Int : 397 ms Normal sinus rhythm Normal ECG No previous ECGs available Confirmed by Don Carlson ([id number]) on 10/14/2020 6:44:33 PM Referred By: Pedro Luis Smith Confirmed By:Aj Carlson
[2020-10-14] MEDS: ENOXAPARIN INJ 40 MG/0.4 ML SYR SQ SCH (20:14)
--- NOTE | 2020-10-15 08:14 | Urology Progress Note ---
Date of Service October 15, 2020 Assessment & Plan (1) Acute urinary retention: (2) Benign localized prostatic hyperplasia with lower urinary tract symptoms (LUTS): Plan: 65yo M who is s/p outpatient cystoscopy on 10/06 admitted with acute urinary retention and fever - CT imaging on arrival noted mild left-sided perinephric stranding, possibly ascending UTI/Pyelo given recent cystoscopy; Enlarged prostate and bladder outlet obstruction, superimposed prostatitis impossible to exclude. - He is afebrile, VSS, non-toxic appearing. Fever yesterday (10/14 @ 2239) -39.1C - Labs reviewed -Wbc normal and creatinine 1.59 (previously 1.75). - BCx no growth after 48hrs; UC&S preliminary with enterococcus, antibiotic changed to IV Ampicillin - Tolerating Leroy catheter with minimal bother-- Will need to continue catheter until procedure - We will plan to proceed with TURP and Cystolitholapaxy this Tuesday (10/17) with Dr. Babb given there are no acute changes in patient status. - If he is discharged, will need to continue antibiotics for a total of 10 days pending final culture sensitivities. - If he remains inpatient, will need to make NPO at midnight for procedure Tuesday morning. - Continue supportive care and antibiotic therapy, follow cultures. - Will continue to follow while inpatient Admission and Anticipated Discharge Date Admission Date: October 13, 2020 Subjective Pt examined at bedside this AM. Awake, resting in bed on arrival. No issues overnight. Denies fever or chills. No nausea or vomiting. Denies any pain or discomfort at present. Tolerating leroy catheter with minimal bother. Leroy intact, draining clear, yellow urine. Review of Systems Constitutional: as per Subjective / HPI Gastrointestinal: as per Subjective / HPI Genitourinary: + as per Subjective / HPI Physical Exam Constitutional: well developed and well nourished; no acute distress and not ill appearing Respiratory: normal respiratory effort and able to speak in complete sentences; no labored breathing and no audible wheezes Gastrointestinal (Abdomen): Inspection/Auscultation: abdomen normal to inspection; abdomen not distended Musculoskeletal: Head/Neck/Chest: normocephalic Skin: No visible rashes or lesions to exposed skin areas Neurologic: moves all extremities and awake Psychiatric: Orientation: alert, oriented x 3 and cooperative Genitourinary: Leroy catheter intact, draining clear yellow urine Results & Data ([facility]) Vital Signs (Past 12 Hours) Vital Signs Temp Pulse Resp BP Pulse Ox 10/15/20 07:11 37.1 C 58 L 17 107/62 95 10/15/20 00:37 37.2 C 10/14/20 22:39 39.1 C H 73 16 144/65 H 98 PG Care Time/CCT Total # of Minutes Spent Total Time Spent with Patient: Total time spent is greater than 50% in coordination of care (as documented) at patient's floor/unit and/or counseling patient: Coding Level of Care Code 51470 Subseq Hosp Care Lvl 2 Diagnoses Acute urinary retention R33.8 Benign localized prostatic hyperplasia with lower urinary tract symptoms (LUTS) N40.1
[2020-10-15] MEDS: ACYCLOVIR 400 MG TAB PO SCH ×2 (08:21→20:56)
[2020-10-15] MEDS: TAMSULOSIN HCL 0.4 MG CAP PO SCH (08:21)
[2020-10-15] MEDS ORDERED: AMPICILLIN SOD 1 GM VIAL IV SCH (09:30)
[2020-10-15 10:15] LABS: Basophils # (auto) 0.01 K/uL (0-0.2); Basophils % (auto) 0.1 %; Hematocrit (blood only) 41.6 % (42-52); Hemoglobin 13.9 g/dL (14.0-18.0); Immature Granulocytes # (auto) 0.02 K/uL (0.00-0.02); Immature Granulocytes % (auto) 0.2 %; Lymphocytes # (auto) 0.66 K/uL (1.2-3.4); Mean Corpuscular Hemoglobin 30.5 pg (25-34); Mean Corpuscular Hgb Conc 33.4 g/dL (32-36); Mean Corpuscular Volume 91.2 fL (80-100); Monocytes # (auto) 0.47 K/uL (0.11-0.59); Monocytes % (auto) 5.7 %; Neutrophils # (auto) 7.09 K/uL (1.4-6.5); Platelet Count 147 K/uL (130-400); RDW Coefficient of Variation 13.5 % (11.5-14.5); RDW Standard Deviation 44.4 fL (36.4-46.3); Red Blood Count 4.56 M/uL (4.7-6.1); White Blood Count 8.25 K/uL (4.8-10.8)
[2020-10-15 10:37] LABS: BUN Creatinine Ratio 11.3 (10-20); Calcium 8.5 mg/dl (8.5-10.1); Creatinine Clr Calc Pharmacy 46.3 ml/min; Est GFR (Non-African American) 44.9 ml/min; Potassium 3.7 mmol/L (3.5-5.1)
--- NOTE | 2020-10-15 11:18 | Anesthesiology Consultation ---
Date of Service October 15, 2020 Assessment & Plan (1) Encounter for pre-operative examination: Chart Review Chart Review: Acceptable Risk for Surgery and Patient NOT seen in Pre Admission Testing Consults Requested none History Height/Weight Height: 5 ft 9 in Weight: 75.6 kg Allergies Allergy/AdvReac Type Severity Reaction Status Date / Time quillian Allergy Mild was told Uncoded 10/14/20 15:49 family history, and not to receive it seasonal Allergy Unknown Uncoded 10/14/20 15:49 Medications Home Medications Medication Instructions Recorded Confirmed Last Taken acyclovir 400 mg tablet 400 mg PO BID 09/17/20 10/14/20 Unknown tamsulosin 0.4 mg capsule 0.8 mg PO QAM 09/17/20 10/14/20 Unknown diazepam 5 mg tablet (Valium) 5 mg PO ONCE PRN #1 tab 09/24/20 10/14/20 Unknown Active Medications Generic Name Dose Route Start Last Admin Trade Name Freq PRN Reason Stop Dose Admin Acetaminophen 650 mg 10/13/20 17:08 10/14/20 22:48 Acetaminophen 325 Mg Tab PO 11/12/20 17:07 650 mg Q4H PRN Administration pain/fever Acyclovir 400 mg 10/13/20 21:00 10/15/20 08:21 Acyclovir 400 Mg Tab PO 10/23/20 20:59 400 mg BID ISACC Administration Enoxaparin Sodium 40 mg 10/13/20 21:00 10/14/20 20:14 Enoxaparin Inj 40 Mg/0.4 Ml Syr SQ 11/12/20 20:59 40 mg Q24H ISACC Administration Tamsulosin HCl 0.8 mg 10/14/20 09:00 10/15/20 08:21 Tamsulosin Hcl 0.4 Mg Cap PO 11/13/20 08:59 0.8 mg DAILY ISACC Administration Past Medical History Medical History Benign localized prostatic hyperplasia with lower urinary tract symptoms (LUTS) leroy cath in place and in hospital 10/14/2020 Chronic kidney disease, stage 3 GERD with esophagitis diet controlled H/O poliomyelitis Recurrent genital herpes simplex Past Family History Family History Grandfather (Maternal) Prostate cancer Father Prostate cancer Past Surgical History Surgical History Hx of cataract surgery right and left Hx of tonsillectomy Social History Smoking Status: Never smoker Do You Dip or Chew Tobacco: No Hx Alcohol Use: Yes Alcohol type: beer alcohol intake frequency: holidays/special occasions only Hx Substance Use: No substance use type: does not use Physical Exam Vital Signs Last Vital Signs Temp 37.1 C 10/15/20 07:11 Pulse 58 L 10/15/20 07:11 Resp 17 10/15/20 07:11 BP 107/62 10/15/20 07:11 Pulse Ox 95 10/15/20 07:11 Testing Laboratory Results 10/15/20 09:49 10/15/20 09:49 Urine Color Yellow 10/13/20 12:04 Urine Appearance Clear (Clear) 10/13/20 12:04 Urine pH 5.0 (4.5-7.5) 10/13/20 12:04 Ur Specific [place] 1.023 (1.000-1.030) 10/13/20 12:04 Urine Protein Trace (Negative) H 10/13/20 12:04 Urine Glucose (UA) Negative (Negative) 10/13/20 12:04 Urine Ketones Negative (Negative) 10/13/20 12:04 Urine Nitrite Negative (Negative) 10/13/20 12:04 Ur Leukocyte Esterase Trace (Negative) H 10/13/20 12:04 Urine WBC (Auto) 1-5 /hpf (0-5) 10/13/20 12:04 Urine RBC (Auto) 0-4 /hpf (0-4) 10/13/20 12:04 U Hyaline Cast (Auto) 1-5 /lpf (0-5) 10/13/20 12:04 U Epithel Cells (Auto) 10-20 /lpf (0-5) H 10/13/20 12:04 Urine Bacteria (Auto) Negative (Negative) 10/13/20 12:04 10/14/20 Unknown Urine Culture - Preliminary Urine,Indwelling Cath Probable Enterococcus 10/13/20 13:17 Aerobic Blood Culture - Preliminary Blood No growth in Aerobic bottle after 24 hours. Anaerobic Blood Culture - Preliminary No growth in Anaerobic bottle after 24 hours. 10/13/20 13:22 Aerobic Blood Culture - Preliminary Blood No growth in Aerobic bottle after 24 hours. Anaerobic Blood Culture - Preliminary No growth in Anaerobic bottle after 24 hours. Electrocardiogram Date: 10/14/20 Findings: + NSR @ (83 bpm) Chest X-Ray Date: 10/13/20 Findings: + NAD Other Testing Abdomen/pelvis CT 10/13/2020: IMPRESSION: 1. There is heterogeneous/striated enhancement in the upper pole of the left kidney with mild left-sided perinephric stranding. Given the history of recent cystoscopy and fever this likely represents ascending urinary tract infection/pyelonephritis. Correlate with clinical findings and urinalysis. 2. The right kidney enhances homogeneously. 3. The prostate gland is significantly enlarged and heterogeneous and there is evidence of chronic bladder outlet obstruction. Superimposed prostatitis would be impossible to exclude. Correlate clinically. 4. There is a large bladder calculus. 5. Additional findings as above
[2020-10-15] MEDS: AMPICILLIN 500 MG in SODIUM CHLORIDE 0.9% 50 ML IV SCH ×3 (11:33→20:57)
--- NOTE | 2020-10-15 12:42 | Hospitalist Progress Note ---
Date of Service October 15, 2020 Assessment & Plan (1) Acute urinary retention: Plan: Presented with worsening feeling of bladder fullness about 4-5 days after undergoing cystoscopy in office with Urology--> found to have retained urine of 1.5L after Reyes placed in ER has known enlarged prostate and plan for TURP this Tuesday with Dr. Babb -Reyes functioning well-to remain in place until TURP with fever on arrival and persisting through evening of 10/14-continue to treat with abx as below for presumed acute prostatitis despite normal UA -continue tamsulosin -appreciate Urology consultation (2) Acute prostatitis: Plan: with fever on arrival and persisting through evening of 10/14 received a dose of Cefepime in ER x 1, abx not continued after admission, then started Cipro on 10/14 Ur cx from 10/14 with probable Enterococcus, final ID and sensitivities pending BCxs-NGTD -dc Cipro and start Ampicillin 500mg IV q6h -f/u final Ur cx result when available APAP prn fever Hopeful to dc home on po abx of fevers resolved and Ur cx allows (3) Fever: Plan: as above (4) Benign localized prostatic hyperplasia with lower urinary tract symptoms (LUTS): Plan: as above. 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 back to baseline -Avoid nephrotoxins -renally dose meds when appropriate (6) Chronic kidney disease, stage 3: Plan: Creatinine is elevated at 1.45 on baseline saw Nephro 10 years ago and was told 24 hour urine studies were normal and 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 Denies CP, SOB, abd pain. Had a BM this AM but not much and feels constipated. Is worried that if his fevers don't resolve, it will delay his TURP. He is agreeable to staying another night since changed to ampicillin and awaiting final culture Review of Systems Review of Systems: All systems reviewed & are unremarkable except as noted in HPI & below Physical Exam Constitutional: WD/WN, vitals as above Eyes: + anicteric sclerae Neck: trachea midline, no thyromegaly Respiratory: normal respiratory effort, lungs clear to auscultation Cardiovascular: RRR, no murmur, no edema Chest (Breasts): Chest: normal inspection of chest Gastrointestinal (Abdomen): normal bowel sounds, soft, nontender, no hepatosplenomegaly Musculoskeletal: Extremities: extremities normal to inspection; no cyanosis and no clubbing Skin: no rashes, warm and dry Neurologic: moves all extremities and awake; no focal motor deficits Psychiatric: A+Ox3, euthymic affect Genitourinary: Reyes cath with clear yellow urine Lymphatic: no lymphedema Results & Data Results & Data ([facility]) Vital Signs (Past 12 Hours) Vital Signs Temp Pulse Resp BP Pulse Ox 10/15/20 07:11 37.1 C 58 L 17 107/62 95 Laboratory Results 10/15/20 10/15/20 Range/Units 09:49 09:49 WBC 8.25 (4.8-10.8) K/uL RBC 4.56 L (4.7-6.1) M/uL Hgb 13.9 L (14.0-18.0) g/dL Hct 41.6 L (42-52) % MCV 91.2 (80-100) fL MCH 30.5 (25-34) pg MCHC 33.4 (32-36) g/dL RDW Std Deviation 44.4 (36.4-46.3) fL RDW Coeff of Denisse 13.5 (11.5-14.5) % Plt Count 147 (130-400) K/uL MPV 11.0 H (7.4-10.4) fL Immature Gran % (Auto) 0.2 % Neut % (Auto) 86.0 % Lymph % (Auto) 8.0 % Alcorn % (Auto) 5.7 % Eos % (Auto) 0.0 % Baso % (Auto) 0.1 % Neut # (Auto) 7.09 H (1.4-6.5) K/uL Lymph # (Auto) 0.66 L (1.2-3.4) K/uL Alcorn # (Auto) 0.47 (0.11-0.59) K/uL Eos # (Auto) 0.00 (0-0.5) K/uL Baso # (Auto) 0.01 (0-0.2) K/uL Immature Gran # (Auto) 0.02 (0.00-0.02) K/uL Sodium 135 L (136-145) mmol/L Potassium 3.7 (3.5-5.1) mmol/L Chloride 103 (98-107) mmol/L Carbon Dioxide 30 (21-32) mmol/L Anion Gap 2.0 L (3-11) BUN 18 (7-18) mg/dl Creatinine 1.59 H (0.6-1.4) mg/dl Est Cr Clr Drug Dosing 46.3 ml/min Est GFR ( Amer) 52.0 ml/min Est GFR (Non-Af Amer) 44.9 ml/min BUN/Creatinine Ratio 11.3 (10-20) Glucose 177 H (70-99) mg/dl Calcium 8.5 (8.5-10.1) mg/dl Ur cx: probable Enterococcus PG Care Time/CCT Total # of Minutes Spent Total Time Spent with Patient: Total time spent is greater than 50% in coordination of care (as documented) at patient's floor/unit and/or counseling patient: Coding Level of Care Code 40696 Subseq Hosp Care Lvl 2 Diagnoses Acute urinary retention R33.8 Fever R50.9 Benign localized prostatic hyperplasia with lower urinary tract symptoms (LUTS) N40.1 VALERIA (acute kidney injury) N17.9 Chronic kidney disease, stage 3 N18.30 Pure hypercholesterolemia E78.00 Recurrent genital herpes simplex A60.00 Acute prostatitis N41.0
[2020-10-15] MEDS: DOCUSATE SODIUM 100 MG CAP PO SCH ×2 (17:10→20:56)
[2020-10-15] MEDS: ENOXAPARIN INJ 40 MG/0.4 ML SYR SQ SCH (20:57)
[2020-10-16] MEDS: AMPICILLIN 500 MG in SODIUM CHLORIDE 0.9% 50 ML IV SCH ×4 (03:55→21:08)
[2020-10-16 06:57] LABS: Basophils # (auto) 0.02 K/uL (0-0.2); Basophils % (auto) 0.3 %; Eosinophils # (auto) 0.02 K/uL (0-0.5); Eosinophils % (auto) 0.3 %; Hematocrit (blood only) 38.2 % (42-52); Hemoglobin 12.5 g/dL (14.0-18.0); Immature Granulocytes # (auto) 0.01 K/uL (0.00-0.02); Immature Granulocytes % (auto) 0.1 %; Lymphocytes # (auto) 0.86 K/uL (1.2-3.4); Lymphocytes % (auto) 12.2 %; Mean Corpuscular Hemoglobin 29.8 pg (25-34); Mean Corpuscular Hgb Conc 32.7 g/dL (32-36); Mean Corpuscular Volume 91.2 fL (80-100); Mean Platelet Volume 10.9 fL (7.4-10.4); Monocytes # (auto) 0.97 K/uL (0.11-0.59); Monocytes % (auto) 13.7 %; Neutrophils # (auto) 5.19 K/uL (1.4-6.5); Neutrophils % (auto) 73.4 %; Platelet Count 161 K/uL (130-400); RDW Standard Deviation 43.5 fL (36.4-46.3); Red Blood Count 4.19 M/uL (4.7-6.1); White Blood Count 7.07 K/uL (4.8-10.8)
[2020-10-16 07:28] LABS: BUN Creatinine Ratio 12.9 (10-20); Calcium 8.3 mg/dl (8.5-10.1); Creatinine Clr Calc Pharmacy 56.2 ml/min; Est GFR (African American) 65.8 ml/min; Est GFR (Non-African American) 56.7 ml/min; Potassium 3.9 mmol/L (3.5-5.1)
--- NOTE | 2020-10-16 08:00 | Urology Progress Note ---
Date of Service October 16, 2020 Assessment & Plan (1) Acute urinary retention: (2) Benign localized prostatic hyperplasia with lower urinary tract symptoms (LUTS): Plan: 65yo M admitted with acute urinary retention and fever - Patient with hx of BPH and bladder stone and is s/p outpatient cystoscopy on 10/06. - CT imaging on arrival noted mild left-sided perinephric stranding, possibly ascending UTI/Pyelo given recent cystoscopy; Enlarged prostate and bladder outlet obstruction, superimposed prostatitis impossible to exclude. - He is afebrile- TMAX 37.6 (10/15 @ 2255). Vitals stable, non-toxic appearing. - Labs reviewed -- Wbc and creatinine normal. - BCx NGTD; Urine culture final with Enterococcus, continues on IV Ampicillin. - Plan to proceed with TURP and Cystolitholapaxy tomorrow (10/17) with Dr. Babb given there are no acute changes in patient status. - NPO at midnight for procedure in the morning. - Maintain leroy catheter. - Continue supportive care and antibiotic therapy. - Patient agreeable to plan, all questions were answered. - Will continue to follow. Admission and Anticipated Discharge Date Admission Date: October 13, 2020 Supervising Physician Co-Signing Physician Notes Discussed patient and plan with AHSAN. Agree with above. Continue ampicillin for enterococcus. Remain overnight and Dr. Babb will discuss possible surgical intervention tomorrow based on clinical picture. Maintain leroy catheter. Subjective Pt examined at bedside this AM. Awake, resting in bed on arrival. No issues overnight. Denies fevers or chills. Tolerating diet, no nausea or vomiting. Denies any pain or discomfort at present. Tolerating leroy catheter with minimal bother. Leroy intact, draining clear, yellow urine. Ambulating without dizziness Eager to proceed with surgery tomorrow. Review of Systems Constitutional: as per Subjective / HPI Gastrointestinal: as per Subjective / HPI Genitourinary: + as per Subjective / HPI Physical Exam Constitutional: well developed and well nourished; no acute distress and not ill appearing Respiratory: normal respiratory effort and able to speak in complete sentences; no labored breathing and no audible wheezes Gastrointestinal (Abdomen): Inspection/Auscultation: abdomen normal to inspection; abdomen not distended Musculoskeletal: Head/Neck/Chest: normocephalic Skin: No visible rashes or lesions to exposed skin areas Neurologic: moves all extremities and awake Psychiatric: Orientation: alert, oriented x 3 and cooperative Genitourinary: Leroy catheter intact, draining clear yellow urine Results & Data ([facility]) Vital Signs (Past 12 Hours) Vital Signs Temp Pulse Resp BP Pulse Ox 10/16/20 07:43 37.1 C 72 16 128/74 96 10/15/20 22:55 37.6 C H 67 17 125/71 96 PG Care Time/CCT Total # of Minutes Spent Total Time Spent with Patient: Total time spent is greater than 50% in coordination of care (as documented) at patient's floor/unit and/or counseling patient: Coding Level of Care Code 25004 Subseq Hosp Care Lvl 2 Diagnoses Acute urinary retention R33.8 Benign localized prostatic hyperplasia with lower urinary tract symptoms (LUTS) N40.1
[2020-10-16] MEDS: ACYCLOVIR 400 MG TAB PO SCH ×2 (09:39→21:07)
[2020-10-16] MEDS: TAMSULOSIN HCL 0.4 MG CAP PO SCH (09:40)
[2020-10-16] MEDS: DOCUSATE SODIUM 100 MG CAP PO SCH ×2 (09:40→21:08)
[2020-10-16] MEDS: POLYETHYLENE (MIRALAX) 17 GM PACK PO PRN ×2 (09:40→09:41)
--- NOTE | 2020-10-16 12:45 | Hospitalist Progress Note ---
Date of Service October 16, 2020 Assessment & Plan (1) Acute urinary retention: Plan: Presented with worsening feeling of bladder fullness about 4-5 days after undergoing cystoscopy in office with Urology--> found to have retained urine of 1.5L after Reyes placed in ER has known enlarged prostate and plan for TURP this Tuesday with Dr. Babb -Reyes functioning well-to remain in place until after TURP with fever on arrival and persisting through evening of 10/14-now resolving with abx as below for presumed acute prostatitis -continue tamsulosin -appreciate Urology consultation (2) Acute prostatitis: Plan: with fever on arrival and persisting through evening of 10/14 received a dose of Cefepime in ER x 1, abx not continued after admission, then started Cipro on 10/14 empirically, then changed to Ampicillin when "Probable Enterococcus" resulted on Ur cx Ur cx from 10/14 now finalized with Enterococcus faecalis, only resistant to tetracycline BCxs-remain NGTD Fever now resolving, Tm 37.6 last 24 hrs -cont Ampicillin 500mg IV q6h for now, but will be able to revert back to po Cipro for discharge now that final Ur cx shows sensitivity to Cipro -plan to stay through for TURP and home after that if doing well (3) Fever: Plan: as above, resolving (4) Benign localized prostatic hyperplasia with lower urinary tract symptoms (LUTS): Plan: as above. 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 with baseline 1.4 Could be due to prerenal from fever and mild dehydration, could also be from post-renal obstruction Reyes now in place received 1L NS and now manager business intelligence back to baseline or even improved -Avoid nephrotoxins -renally dose meds when appropriate (6) Chronic kidney disease, stage 3: Plan: Creatinine is elevated at 1.45 on baseline saw Nephro 10 years ago and was told 24 hour urine studies were normal and 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 Feels mentally clearer, more energy. Is having a lot of trouble sleeping and requests something for sleep. Says melatonin does not really work for him. Denies CP,SOB, N/V, abd pains. He did have to strain yesterday to move his bowels which caused a lot of pain in the area of the catheter. Took Miralax today. Review of Systems Review of Systems: All systems reviewed & are unremarkable except as noted in HPI & below Physical Exam Constitutional: WD/WN, vitals as above Eyes: + anicteric sclerae Neck: trachea midline, no thyromegaly Respiratory: normal respiratory effort, lungs clear to auscultation Cardiovascular: RRR, no murmur, no edema Chest (Breasts): Chest: normal inspection of chest Gastrointestinal (Abdomen): normal bowel sounds, soft, nontender, no hepatosplenomegaly Musculoskeletal: Extremities: extremities normal to inspection; no cyanosis and no clubbing Skin: no rashes, warm and dry Neurologic: moves all extremities and awake; no focal motor deficits Psychiatric: A+Ox3, euthymic affect Lymphatic: no lymphedema Results & Data Results & Data ([facility]) Vital Signs (Past 12 Hours) Vital Signs Temp Pulse Resp BP Pulse Ox 10/16/20 07:43 37.1 C 72 16 128/74 96 Laboratory Results 10/16/20 06:40 10/16/20 06:40 Urine cx: Enterococcus faecalis, only resistant to tetracycline BCxs-NGTD PG Care Time/CCT Total # of Minutes Spent Total Time Spent with Patient: Total time spent is greater than 50% in coordination of care (as documented) at patient's floor/unit and/or counseling patient: Coding Level of Care Code 30563 Subseq Hosp Care Lvl 2 Diagnoses Acute urinary retention R33.8 Acute prostatitis N41.0 Fever R50.9 Benign localized prostatic hyperplasia with lower urinary tract symptoms (LUTS) N40.1 VALERIA (acute kidney injury) N17.9 Chronic kidney disease, stage 3 N18.30 Pure hypercholesterolemia E78.00 Recurrent genital herpes simplex A60.00
[2020-10-16] MEDS: ZOLPIDEM TARTRATE 5 MG TAB PO PRN (21:08)
[2020-10-16] MEDS: ENOXAPARIN INJ 40 MG/0.4 ML SYR SQ SCH (21:09)
[2020-10-17] MEDS: AMPICILLIN 500 MG in SODIUM CHLORIDE 0.9% 50 ML IV SCH ×4 (04:35→21:08)
[2020-10-17 06:11] LABS: Basophils # (auto) 0.01 K/uL (0-0.2); Basophils % (auto) 0.2 %; Eosinophils # (auto) 0.05 K/uL (0-0.5); Eosinophils % (auto) 0.8 %; Hematocrit (blood only) 36.4 % (42-52); Hemoglobin 11.9 g/dL (14.0-18.0); Immature Granulocytes # (auto) 0.02 K/uL (0.00-0.02); Immature Granulocytes % (auto) 0.3 %; Lymphocytes # (auto) 0.94 K/uL (1.2-3.4); Lymphocytes % (auto) 14.8 %; Mean Corpuscular Hemoglobin 29.5 pg (25-34); Mean Corpuscular Hgb Conc 32.7 g/dL (32-36); Mean Corpuscular Volume 90.3 fL (80-100); Mean Platelet Volume 10.5 fL (7.4-10.4); Monocytes # (auto) 0.82 K/uL (0.11-0.59); Monocytes % (auto) 12.9 %; Neutrophils # (auto) 4.53 K/uL (1.4-6.5); Platelet Count 200 K/uL (130-400); RDW Coefficient of Variation 13.2 % (11.5-14.5); RDW Standard Deviation 43.8 fL (36.4-46.3); Red Blood Count 4.03 M/uL (4.7-6.1); White Blood Count 6.37 K/uL (4.8-10.8)
[2020-10-17 06:38] LABS: BUN Creatinine Ratio 15.5 (10-20); Calcium 8.5 mg/dl (8.5-10.1); Creatinine Clr Calc Pharmacy 57.5 ml/min; Est GFR (African American) 67.6 ml/min; Est GFR (Non-African American) 58.3 ml/min; Potassium 3.7 mmol/L (3.5-5.1)
--- NOTE | 2020-10-17 06:56 | Urology Progress Note ---
Date of Service October 17, 2020 Assessment & Plan (1) Acute urinary retention: Plan: TURP risks, benefits, expectations reviewed Admission and Anticipated Discharge Date Admission Date: October 13, 2020 Subjective urinary retention - plan for TURP this AM Physical Exam Constitutional: well developed and well nourished Respiratory: no respiratory distress Cardiovascular: Extremities: no pedal edema Gastrointestinal (Abdomen): Inspection/Auscultation: abdomen normal to inspection Results & Data ([facility]) Vital Signs (Past 12 Hours) Vital Signs Temp Pulse Resp BP Pulse Ox 10/17/20 06:13 37.3 C 61 18 157/75 H 98 10/16/20 22:28 36.9 C 63 18 121/70 96 PG Care Time/CCT Total # of Minutes Spent Total Time Spent with Patient: Total time spent is greater than 50% in coordination of care (as documented) at patient's floor/unit and/or counseling patient: Coding Level of Care Code 79942 Subseq Hosp Care Lvl 2 Diagnoses Acute urinary retention R33.8
[2020-10-17] MEDS ORDERED: ONDANSETRON INJ 2 MG/ML 2 ML VIAL IV PRN (07:22)
[2020-10-17] MEDS ORDERED: ePHEDrine sulfate 50 MG/ML AMP IV PRN (07:22)
[2020-10-17] MEDS ORDERED: ATROPINE SULFATE 0.1 MG/ML 10ML SYR IV PRN (07:22)
[2020-10-17] MEDS ORDERED: fentaNYL citrate 100 MCG/2 ML VIAL IV PRN (07:22)
--- NOTE | 2020-10-17 08:43 | Operative Report ---
PG Post Operative Report Pre & Post Diagnosis Operation Date: 10/17/20 07:00 Pre-Op Diagnosis: URINARY RETENTION; bladder stone Post-Op Diagnosis: URINARY RETENTION; bladder stone I identified the patient and participated in the time-out.: Yes Procedure Operation Date: 10/17/20 07:00 Actual Procedures p Transurethral Resection of The Prostate and(Not Applicable) - Darrell Babb MD s Laser Lithalopaxy - Darrell Babb MD Surgeon Don Babb MD Chief Executive Or Managing Director None Estimated Blood Loss 10 Findings Consistent with Post-Op Diagnosis Specimens 1. Bladder stone 2. Prostate chips Description of Procedure The patient was identified in the preoperative holding area, appropriate informed consents were reviewed and completed and the patient was transferred to the operative suite. Upon arrival, appropriate antibiotics and anesthesia were administered and the patient was placed in dorsal lithotomy position and prepped and draped in sterile fashion. To begin the case I passed a 27 Portuguese resectoscope with 30 degree lens and visual obturator. Inspection revealed healthy urethra without stricturing and a very large prostate with lateral lobe hypertrophy and uniform intravesical intrusion circumferentially. The bladder was heavily trabeculated and there was a large stone just behind the prostate. Before addressing the prostate I utilized a 500 m laser fiber to perform laser litholapaxy. I irrigated all stone debris out of the bladder. This was passed off the table for chemical analysis. I then exchanged the laser bridge for a resecting element using a loop electrode. I began to resect the bladder neck by incising at 5 and 7:00 and then resecting the intervening tissue. I used care to avoid encroachment upon the UOs. I then proceeded to resect the left lateral lobe followed by the right lateral lobe and ultimately the apical tissue. He had significant redundant anterior tissue that required some treatment as well. I irrigated all prostate chips out of the bladder and passed them off for pathological analysis. I then reentered the bladder with a button electrode and smooth to the resection site and obtain meticulous hemostasis. The prostatic fossa was widely patent and hemostasis was excellent. A 22 Portuguese Reyes catheter was inserted and he was reversed of anesthesia and taken to the recovery room in stable condition. There were no complications. I attest to the content of the Intraoperative Record and any orders documented therein. Any exceptions are noted below.
--- NOTE | 2020-10-17 09:38 | Anesthesiology Progress Note ---
Date of Service October 17, 2020 Anesthesia Post Procedure Vital Signs Vital Signs: Temp Pulse Pulse Pulse Resp BP Pulse Ox 10/17/20 09:25 97.5 F L 64 14 137/78 95 10/17/20 09:10 62 14 138/72 96 10/17/20 09:00 97.3 F L 64 16 131/70 96 10/17/20 08:50 63 16 137/70 98 10/17/20 08:43 97.2 F L 67 18 119/68 95 10/17/20 06:13 99.1 F 61 18 157/75 H 98 10/16/20 22:28 98.4 F 63 18 121/70 96 10/16/20 16:07 98.6 F 69 16 125/71 97 Pain Intensity Lower Abdomen: Pain Intensity: 6 Lower Penis: Pain Intensity: 6 Transfer of Care Handoff Completed per policy Notes Mental Status: alert / awake / arousable and participated in evaluation Patient Amnestic to Procedure: Yes Nausea / Vomiting: adequately controlled Pain: adequately controlled Airway Patency, RR, SpO2: stable & adequate BP & HR: stable & adequate Hydration State: stable & adequate Anesthetic Complications: no major complications apparent and Pt Satisfied with anesthetic care
[2020-10-17] MEDS: ACYCLOVIR 400 MG TAB PO SCH ×2 (09:55→21:09)
[2020-10-17] MEDS: DOCUSATE SODIUM 100 MG CAP PO SCH ×2 (09:55→21:08)
[2020-10-17] MEDS: TAMSULOSIN HCL 0.4 MG CAP PO SCH (09:56)
[2020-10-17] MEDS ORDERED: CALCIUM CARBONATE 500 MG CHEWABLE TAB PO PRN (16:02)
[2020-10-17] MEDS ORDERED: SIMETHICONE 80 MG CHEW PO PRN (16:15)
--- NOTE | 2020-10-17 16:44 | XRay Report ---
KUB HISTORY: Acute generalized abdominal pain abdominal pain COMPARISON: CT abdomen and pelvis 10/13/2020 FINDINGS: Nonobstructive bowel gas pattern. Liver appears mildly enlarged. No renal calculi. No uret eral calculi. The previously noted large bladder calculus is redemonstrated. Pelvic basin phleboliths . No pneumoperitoneum or pneumatosis. Degenerative changes of the spine, pelvis and hips. No fracture . IMPRESSION: 1. Nonobstructive bowel gas pattern. 2. Urinary bladder calculus redemonstrated. ACT 112: Negative or not required by law. The above report was generated using voice recognition software. It may contain grammatical, syntax o r spelling errors. Electronically signed by: Dionicio Peters M.D. 10/17/2020 4:42 PM
--- NOTE | 2020-10-17 17:47 | Hospitalist Progress Note ---
Date of Service October 17, 2020 Assessment & Plan (1) Acute urinary retention: Plan: Presented with worsening feeling of bladder fullness about 4-5 days after undergoing cystoscopy in office with Urology--> found to have retained urine of 1.5L after Reyes placed in ER has known enlarged prostate and now s/p TURP on 10/[address] Babb -Reyes functioning well-to remain in place until after TURP, hopeful for TOV tomorrow with fever on arrival and persisting through evening of 10/14-now resolving with abx as below for presumed acute prostatitis -continue tamsulosin -appreciate Urology consultation (2) Acute prostatitis: Plan: with fever on arrival and persisting through evening of 10/14 received a dose of Cefepime in ER x 1, abx not continued after admission, then started Cipro on 10/14 empirically, then changed to Ampicillin when "Probable Enterococcus" resulted on Ur cx Ur cx from 10/14 now finalized with Enterococcus faecalis, only resistant to tetracycline BCxs-remain NGTD Fever now resolved -cont Ampicillin 500mg IV q6h for now, but will be able to revert back to po Cipro for discharge now that final Ur cx shows sensitivity to Cipro -plan to stay through for TURP and home after that if doing well on Sat (3) Fever: Plan: as above, resolved (4) Benign localized prostatic hyperplasia with lower urinary tract symptoms (LUTS): Plan: as above. 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 No pain at all from the Reyes whereas he did before the surgery. Has some upper abdomial "gas pains" that were relieved with TUMs. He is passing flatus but no BM today. Does not want to get up and walk around right now. DOes feel an urge to cough w ith deep breaths. No CP or SOB. Afebrile overnight Review of Systems Review of Systems: All systems reviewed & are unremarkable except as noted in HPI & below Physical Exam Constitutional: WD/WN, vitals as above Eyes: + anicteric sclerae ENMT: external ear and nose normal, oropharynx normal Neck: trachea midline, no thyromegaly Respiratory: normal respiratory effort, lungs clear to auscultation Cardiovascular: RRR, no murmur, no edema Chest (Breasts): Chest: normal inspection of chest Gastrointestinal (Abdomen): normal bowel sounds, soft, nontender, no hepatosplenomegaly Musculoskeletal: Extremities: extremities normal to inspection; no cyanosis and no clubbing Skin: no rashes, warm and dry Neurologic: moves all extremities and awake; no focal motor deficits Psychiatric: A+Ox3, euthymic affect Lymphatic: no lymphedema Results & Data Results & Data ([facility]) Vital Signs (Past 12 Hours) Vital Signs Temp Pulse Pulse Pulse Pulse Resp BP 10/17/20 16:00 36.6 C 60 20 127/66 10/17/20 12:36 36.5 C 56 L 16 124/72 10/17/20 11:25 36.8 C 60 18 111/59 L 10/17/20 10:25 36.5 C 65 18 116/65 10/17/20 09:57 36.8 C 62 14 131/63 10/17/20 09:25 36.4 C L 64 14 137/78 10/17/20 09:10 62 14 138/72 10/17/20 09:00 36.3 C L 64 16 131/70 10/17/20 08:50 63 16 137/70 10/17/20 08:43 36.2 C L 67 18 119/68 10/17/20 06:13 37.3 C 61 18 157/75 H Pulse Ox 10/17/20 16:00 98 10/17/20 12:36 98 10/17/20 11:25 98 10/17/20 10:25 97 10/17/20 09:57 95 10/17/20 09:25 95 10/17/20 09:10 96 10/17/20 09:00 96 10/17/20 08:50 98 10/17/20 08:43 95 10/17/20 06:13 98 Laboratory Results 10/17/20 10/17/20 Range/Units 05:46 05:46 WBC 6.37 (4.8-10.8) K/uL RBC 4.03 L (4.7-6.1) M/uL Hgb 11.9 L (14.0-18.0) g/dL Hct 36.4 L (42-52) % MCV 90.3 (80-100) fL MCH 29.5 (25-34) pg MCHC 32.7 (32-36) g/dL RDW Std Deviation 43.8 (36.4-46.3) fL RDW Coeff of Denisse 13.2 (11.5-14.5) % Plt Count 200 (130-400) K/uL MPV 10.5 H (7.4-10.4) fL Immature Gran % (Auto) 0.3 % Neut % (Auto) 71.0 % Lymph % (Auto) 14.8 % Weakley % (Auto) 12.9 % Eos % (Auto) 0.8 % Baso % (Auto) 0.2 % Neut # (Auto) 4.53 (1.4-6.5) K/uL Lymph # (Auto) 0.94 L (1.2-3.4) K/uL Weakley # (Auto) 0.82 H (0.11-0.59) K/uL Eos # (Auto) 0.05 (0-0.5) K/uL Baso # (Auto) 0.01 (0-0.2) K/uL Immature Gran # (Auto) 0.02 (0.00-0.02) K/uL Sodium 142 (136-145) mmol/L Potassium 3.7 (3.5-5.1) mmol/L Chloride 110 H (98-107) mmol/L Carbon Dioxide 28 (21-32) mmol/L Anion Gap 4.0 (3-11) BUN 20 H (7-18) mg/dl Creatinine 1.28 (0.6-1.4) mg/dl Est Cr Clr Drug Dosing 57.5 ml/min Est GFR ( Amer) 67.6 ml/min Est GFR (Non-Af Amer) 58.3 ml/min BUN/Creatinine Ratio 15.5 (10-20) Glucose 101 H (70-99) mg/dl Calcium 8.5 (8.5-10.1) mg/dl PG Care Time/CCT Total # of Minutes Spent Total Time Spent with Patient: Total time spent is greater than 50% in coordination of care (as documented) at patient's floor/unit and/or counseling patient: Coding Level of Care Code 84381 Subseq Hosp Care Lvl 2 Diagnoses Acute urinary retention R33.8 Acute prostatitis N41.0 Fever R50.9 Benign localized prostatic hyperplasia with lower urinary tract symptoms (LUTS) N40.1 VALERIA (acute kidney injury) N17.9 Chronic kidney disease, stage 3 N18.30 Pure hypercholesterolemia E78.00 Recurrent genital herpes simplex A60.00
[2020-10-17] MEDS: ENOXAPARIN INJ 40 MG/0.4 ML SYR SQ SCH (21:08)
[2020-10-17] MEDS: ZOLPIDEM TARTRATE 5 MG TAB PO PRN (21:08)
[2020-10-18] MEDS: AMPICILLIN 500 MG in SODIUM CHLORIDE 0.9% 50 ML IV SCH ×2 (04:32→10:37)
--- NOTE | 2020-10-18 08:43 | Urology Progress Note ---
Date of Service October 18, 2020 Assessment & Plan (1) Acute urinary retention: (2) Benign localized prostatic hyperplasia with lower urinary tract symptoms (LUTS): Plan: Remove catheter this morning Plan for discharge home after void Cover with antibiotics for 5 additional daysampicillin or Augmentin We will arrange for outpatient follow-up Admission and Anticipated Discharge Date Admission Date: October 13, 2020 Subjective No issues overnight Urine is remained clear He has been quite comfortable Physical Exam Physical Exam: Clear urine Constitutional: well developed and well nourished Respiratory: no respiratory distress Cardiovascular: Extremities: no pedal edema Gastrointestinal (Abdomen): Inspection/Auscultation: abdomen normal to inspection Results & Data ([facility]) Vital Signs (Past 12 Hours) Vital Signs Temp Pulse Resp BP Pulse Ox 10/18/20 07:55 36.5 C 56 L 18 138/64 100 10/17/20 23:22 36.8 C 61 16 139/70 96 PG Care Time/CCT Total # of Minutes Spent Total Time Spent with Patient: Total time spent is greater than 50% in coordination of care (as documented) at patient's floor/unit and/or counseling patient: Coding Level of Care Code 88680 Subseq Hosp Care Lvl 2 Diagnoses Acute urinary retention R33.8 Benign localized prostatic hyperplasia with lower urinary tract symptoms (LUTS) N40.1
[2020-10-18] MEDS: TAMSULOSIN HCL 0.4 MG CAP PO SCH (08:53)
[2020-10-18] MEDS: ACYCLOVIR 400 MG TAB PO SCH (08:53)
[2020-10-18] MEDS: DOCUSATE SODIUM 100 MG CAP PO SCH (08:53)
[2020-10-18 09:54] LABS: Basophils # (auto) 0.03 K/uL (0-0.2); Basophils % (auto) 0.4 %; Eosinophils # (auto) 0.13 K/uL (0-0.5); Eosinophils % (auto) 1.8 %; Hematocrit (blood only) 40.6 % (42-52); Hemoglobin 13.4 g/dL (14.0-18.0); Immature Granulocytes # (auto) 0.04 K/uL (0.00-0.02); Immature Granulocytes % (auto) 0.6 %; Lymphocytes # (auto) 0.93 K/uL (1.2-3.4); Lymphocytes % (auto) 12.9 %; Mean Corpuscular Hemoglobin 29.9 pg (25-34); Mean Corpuscular Volume 90.6 fL (80-100); Mean Platelet Volume 10.3 fL (7.4-10.4); Monocytes # (auto) 0.55 K/uL (0.11-0.59); Monocytes % (auto) 7.6 %; Neutrophils # (auto) 5.51 K/uL (1.4-6.5); Neutrophils % (auto) 76.7 %; Platelet Count 266 K/uL (130-400); RDW Coefficient of Variation 13.3 % (11.5-14.5); Red Blood Count 4.48 M/uL (4.7-6.1); White Blood Count 7.19 K/uL (4.8-10.8)
[2020-10-18 10:25] LABS: BUN Creatinine Ratio 12.4 (10-20); Calcium 9.1 mg/dl (8.5-10.1); Creatinine Clr Calc Pharmacy 54.2 ml/min; Est GFR (African American) 62.8 ml/min; Est GFR (Non-African American) 54.2 ml/min; Potassium 3.4 mmol/L (3.5-5.1)
--- NOTE | 2020-10-18 13:06 | Discharge Summary ---
Date of Service October 18, 2020 Admission HPI Per Admitting Provider 65 yo male who history of BPH, comes into the hospital with a 3 day history of urinary retention. Patient reports over course of Tuesday into Tuesday, patient has been having severe difficulty urinating. He reports he would need to try for about 30 minutes just to get a short stream and sometimes even an unsteady (trickle) stream. He tried to hold off from going to the hospital. But he felt uncomfortable and had a dull pain in his lower abdomen. Once he came to the ER, a ladd catheter was placed and over 1.5 liters of urine was removed. Patient reports feeling significantly better after this procedure. Earlier in the week, patient was seen by Urology and had an in office cystoscopy. It was deemed patient will require a TURP and this was planned for the future. Principal Diagnosis Urinary retention, Acute prostatitis Discharge Exam Constitutional WD/WN, vitals as above Eyes + anicteric sclerae Neck trachea midline, no thyromegaly Respiratory normal respiratory effort, lungs clear to auscultation Cardiovascular RRR, no murmur, no edema Chest (Breasts) Chest: normal inspection of chest Gastrointestinal (Abdomen) normal bowel sounds, soft, nontender, no hepatosplenomegaly Musculoskeletal Extremities: extremities normal to inspection; no cyanosis and no clubbing Skin no rashes, warm and dry Neurologic moves all extremities and awake; no focal motor deficits Psychiatric A+Ox3, euthymic affect Lymphatic no lymphedema Discharge Data Allergies Allergy/AdvReac Type Severity Reaction Status Date / Time quillian Allergy Mild was told Uncoded 10/14/20 15:49 family history, and not to receive it seasonal Allergy Unknown Uncoded 10/14/20 15:49 Consultations 10/13/20 22:11 Consult Urology Routine Procedures Performed Operation Date: 10/17/20 07:00 Actual Procedures p Transurethral Resection of The Prostate and(Not Applicable) - Darrell Babb MD s Laser Lithalopaxy - Darrell Babb MD Ordered Studies 10/13/20 12:58 CT abd pelvis IV con only Stat Chest X-Ray 10/13/20 12:56 SINGLE VIEW CHEST CLINICAL HISTORY: Fever. FINDINGS: 2 AP, portable, upright chest radiographs are obtained. No prior studies are available for comparison at the time of dictation. Heart is top normal for projection. The mediastinal contour is within normal limits. Atelectasis is noted at the lung bases. The lungs and pleural spaces are otherwise clear. No pneumothorax is seen. The bony thorax is grossly intact. IMPRESSION: No acute cardiopulmonary abnormality. ACT 112: Negative or not required by law. Electronically signed by: Hector Crowe M.D. 10/13/2020 2:28 PM Abdomen/Pelvis CT 10/13/20 12:58 CT SCAN OF THE ABDOMEN AND PELVIS WITH IV CONTRAST CLINICAL HISTORY: Bladder stone. Recent cystoscopy. Fever. COMPARISON STUDY: Renal ultrasound dated 02/12/2014. TECHNIQUE: Following the IV administration of 94 cc of Optiray 320, CT scan of the abdomen and pelvis is performed from the lung bases to the proximal femora. Images are reviewed in the axial, sagittal, and coronal planes. IV contrast was administered without complication. A dose lowering technique was utilized adhering to the principles of ALARA. CT DOSE: 292.72 mGy.cm FINDINGS: Lung bases: The heart is normal in size and without pericardial effusion. The lung bases are clear noting bibasilar scarring/atelectasis. Liver: The contrast-enhanced liver is normal in size, contour, and attenuation. There is no intrahepatic biliary ductal dilatation. The hepatic veins and portal veins are patent. Gallbladder: Unremarkable. Spleen: Normal in size and attenuation. Pancreas: Unremarkable. Adrenal glands: Unremarkable. Kidneys: The contrast enhanced kidneys are normal in size and without hydronephrosis. 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 There is mild fullness of the left ureter and renal collecting system with urothelial thickening of the left ureter. There is heterogeneously/striated enhancement in the upper pole of the left kidney with mild left-sided perinephric stranding. The right kidney enhances homogeneously. Abdominal vasculature: The abdominal aorta is normal in course and caliber noting scattered foci of atherosclerotic calcification. Bowel: There is moderate constipation. No bowel obstruction is identified. The appendix is well-visualized and normal. Peritoneum: There is no intraperitoneal free air or abdominal ascites. There is a small fat-containing umbilical hernia. Lymphadenopathy: None. Pelvic viscera: The prostate gland is enlarged and heterogeneous measuring 5.8 cm in transverse outer. There is median lobe hypertrophy. The bladder wall appears mildly thickened and trabeculated suggesting chronic outlet obstruction. A 1.9 cm bladder calculus is noted. Skeletal structures: No lytic or blastic lesions are seen. IMPRESSION: 1. There is heterogeneous/striated enhancement in the upper pole of the left kidney with mild left-sided perinephric stranding. Given the history of recent cystoscopy and fever this likely represents ascending urinary tract infection/pyelonephritis. Correlate with clinical findings and urinalysis. 2. The right kidney enhances homogeneously. 3. The prostate gland is significantly enlarged and heterogeneous and there is evidence of chronic bladder outlet obstruction. Superimposed prostatitis would be impossible to exclude. Correlate clinically. 4. There is a large bladder calculus. 5. Additional findings as above. ACT 112: Negative or not required by law. Electronically signed by: Hector Crowe M.D. 10/13/2020 2:54 PM KUB X-Ray 10/17/20 16:02 KUB HISTORY: Acute generalized abdominal pain abdominal pain COMPARISON: CT abdomen and pelvis 10/13/2020 FINDINGS: Nonobstructive bowel gas pattern. Liver appears mildly enlarged. No renal calculi. No ureteral calculi. The previously noted large bladder calculus is redemonstrated. Pelvic basin phleboliths. No pneumoperitoneum or pneumatosis. Degenerative changes of the spine, pelvis and hips. No fracture. IMPRESSION: 1. Nonobstructive bowel gas pattern. 2. Urinary bladder calculus redemonstrated. ACT 112: Negative or not required by law. The above report was generated using voice recognition software. It may contain grammatical, syntax or spelling errors. Electronically signed by: Dionicio Peters M.D. 10/17/2020 4:42 PM Hospital Course (1) Acute urinary retention: Presented with worsening feeling of bladder fullness about 4-5 days after undergoing cystoscopy in office with Urology--> found to have retained urine of 1.5L after Ladd placed in ER has known enlarged prostate and now s/p TURP on 10/[address] Babb -Ladd removed POD#1 after TURP and voiding on own witout difficulty with fever on arrival and persisting through evening of 10/14-now resolved with abx as below for presumed acute prostatitis -continue tamsulosin -appreciate Urology consultation f/u as outpt with Urology (2) Acute prostatitis: with fever on arrival and persisting through evening of 10/14 CT abd/pel with thickening of left ureter and some stranding around left kidney, markedly enlarged and heterogenous prostate gland acute prostatitis vs pyelonephritis as cause of fever, with UTI received a dose of Cefepime in ER x 1, abx not continued after admission, then started Cipro on 10/14 empirically, then changed to Ampicillin when "Probable Enterococcus" resulted on Ur cx Ur cx from 10/14 now finalized with Enterococcus faecalis, only resistant to tetracycline BCxs-remain NGTD Fever now resolved -received Ampicillin 500mg IV q6h for 3 days and will finsih out course with 5 more days of AUgmentin on discharge as per Urology recommendation (3) Fever: as above, resolved (4) Benign localized prostatic hyperplasia with lower urinary tract symptoms (LUTS): as above. 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 or even improved at 1.2 -Avoid nephrotoxins -renally dose meds when appropriate f/u with PCP (6) Chronic kidney disease, stage 3: Creatinine is elevated at 1.45 on baseline saw Nephro 10 years ago and was told 24 hour urine studies were normal and 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, no concerns -Avoid nephrotoxins -renally dose meds when appropriate (7) Pure hypercholesterolemia: LDL 145 on outpt records, HDL 53 not on meds no other risk factors for CAD/PAD (8) Recurrent genital herpes simplex: continue prophylactic acyclovir No breakout for years DVT prophylaxis: Lovenox SQ Dispo-stable for dc to home today Total Time Total Time Spent Total Time Spent (In Minutes): 35 min Discharge Plan Discharge Items Patient Disposition: Home - Self-Care Reason For Visit: URINARY RETENTION Discharge Diagnosis: Urinary retention, Acute prostatitis Condition on Discharge: Good Activity: Resume your previous activity Non-emergency contact: Primary Care Provider and Urologist Call non-emergency contact if: you have any medication questions, your symptoms worsen, your pain is not controlled, your pain is worsening, your pain is unusual for you and your pain is concerning for you Follow-up/Referrals: Nitesh Munoz [Primary Care Provider] - Diet: Regular Addtl Attending Provider Instructions: Please finish out the course of antibiotics with Augmentin 1 tablet twice a day for [address] Babb's office will contact you with your follow up appointment date and time. Follow up with your PCP as well within 1-2 weeks. Pending Studies at Discharge: Yes (Bladder stone analysis,Pathology from prostate) Stand-Alone Forms: My [facility] Medications and DC Order Prescriptions: New acetaminophen 325 mg Tablet 650 mg PO Q4H PRN (Reason: pain) Qty: 20 RF: 0 amoxicillin-pot clavulanate [Augmentin] 875-125 mg tablet 1 tab PO BID Qty: 10 RF: 0 Continued acyclovir 400 mg tablet 400 mg PO BID RF: 0 tamsulosin 0.4 mg capsule 0.8 mg PO QAM RF: 0 diazepam [Valium] 5 mg tablet 5 mg PO ONCE PRN (Reason: anxiety) Qty: 1 RF: 0 Discharge Orders: Discharge Order (Routine); Ordered 10/18/20 Ordered By: Lanny Dominguez Admission Data Admit Date/Time: 10/13/20 17:21 Attending Provider: Lanny Dominguez Admit Provider: Nitesh Evans Primary Care Provider: Nitesh Munoz Other Providers: Chriss Romero ; Carlos Servin ; Darrell Babb ; Blanca Luna ; Pedro Luis Smith ; Carmne Lewis ; Andressa Ruiz ; Naty Omalley ; Jesus Anthony ; Tonny Barrett ; Dolly Sánchez ; Nasra Omalley ; Juan Chandler Coding Level of Care Code D/C DAY MANAGEMENT >30 MINS Diagnoses Acute urinary retention R33.8 Acute prostatitis N41.0 Fever R50.9 Benign localized prostatic hyperplasia with lower urinary tract symptoms (LUTS) N40.1 VALERIA (acute kidney injury) N17.9 Chronic kidney disease, stage 3 N18.30 Pure hypercholesterolemia E78.00 Recurrent genital herpes simplex A60.00
== END 2020-10-18 13:31 | disposition home or self-care (01) | DRG 713 ==
LOC: ED 11:14 → SUATTDRO 17:21 → 3N 17:21